=== PATIENT | female | born 1950 | race Hispanic/Latino ===

== ENCOUNTER 2017-04-30 09:43 | Inpatient (IN) | payer MEDICARE ==
[~2017-04-30] VITALS: Ht 149.9 cm; Wt 101.2 kg
[2017-04-30] MEDS ORDERED: IPRATROPIUM/ALBUTEROL SULFATE 3 ML SOLUTION IH ONE (10:29)
[2017-04-30 10:42] LABS: BASOPHILS % (AUTO) 0.5 % (0.0-5.0); EOSINOPHILS % (AUTO) 0.2 % (0.0-8.0); HEMATOCRIT 34.8 % (36-48); LYMPHOCYTES % (AUTO) 5.5 % (21.0-51.0); MEAN CORPUSCULAR HEMOGLOBIN 24.7 pg (27.0-33.0); MEAN CORPUSCULAR HGB CONC 31.8 g/dL (32.0-36.0); MEAN CORPUSCULAR VOLUME 77.6 fL (79-99); NEUTROPHILS % (AUTO) 88.8 % (40.0-77.0); PLATELET COUNT (AUTO) 242 K/uL (130-400); RED BLOOD CELL COUNT(AUTO) 4.48 MIL/uL (4.00-5.50); RED CELL DISTRIBUTION WIDTH 17.5 % (11.0-15.5); WHITE BLOOD COUNT (AUTO) 15.3 K/uL (4.8-10.8)
[2017-04-30 10:54] LABS: CREATININE 1.1 mg/dL (0.5-1.5); INR 1.15 (0.85-1.15); PARTIAL THROMBOPLASTIN TIME 33.1 SEC (26.3-35.5); POTASSIUM 3.6 mmol/L (3.5-5.1)
[2017-04-30] MEDS ORDERED: CEFTRIAXONE SODIUM 1 GM ONE ×2 (10:54→11:31)
[2017-04-30 11:02] LABS: ABG BASE EXCESS 1.2 mmol/L (-2.0-3.0); ABG HCO3 27.6 mmol/L (21.0-28.0); ABG PCO2 51 mmHg (32-45)
[2017-04-30 11:09] LABS: ALBUMIN 2.9 g/dL (3.5-5.0); CREATINE KINASE MB 1.4 ng/mL (0.5-3.6); TOTAL PROTEIN, SERUM 7.9 g/dL (6.0-8.3)
[2017-04-30 11:24] LABS: APPEARANCE,URINE TURBID (CLEAR); BILIRUBIN,URINE LARGE (NEGATIVE); COLOR,URINE ORANGE (YELLOW); GLUCOSE, URINE (UA) 100 mg/dL (NEGATIVE); KETONES,URINE 5 mg/dL (NEGATIVE); LEUKOCYTE ESTERASE ,URINE TRACE (NEGATIVE); NITRATE,URINE POSITIVE (NEGATIVE); OCCULT BLOOD,URINE NEGATIVE (NEGATIVE); PH,URINE 5.5 (5.0-8.0); PROTEIN,URINE 100 (NEGATIVE); UROBILINOGEN,URINE >=8.0 mg/dL (0.2-1.0)
[2017-04-30 11:35] LABS: BACTERIA,URINE Rare /HPF (None Seen); RBC,URINE 0-1 /HPF (0-1); SQUAMOUS EPITHELIAL CELL,UR Moderate /LPF (0-2)
[2017-04-30 11:36] LABS: MUCUS,URINE Few LPF (None Seen)
[2017-04-30] MEDS ORDERED: IOPAMIDOL-370 100 ML VIAL IV ONE (11:36)
[2017-04-30] MEDS ORDERED: SODIUM CHLORIDE 0.9% 1000ML 1,000 ML IV ONE (13:44)
[2017-04-30] MEDS ORDERED: ACETAMINOPHEN-CODEINE 300/30MG TAB PO PRN ×2 (13:45)
[2017-04-30] MEDS ORDERED: LEVOFLOXACIN 500 MG/D5W 100 ML 100 ML IV SCH (13:45)
[2017-04-30] MEDS ORDERED: MORPHINE SULFATE 2 MG/ML 1ML SYG IV PRN (13:45)
[2017-04-30] MEDS ORDERED: NITROGLYCERIN 0.4 MG SL TAB SL PRN (13:45)
[2017-04-30] MEDS ORDERED: POTASSIUM CHLORIDE 20MEQ/100ML 100 ML IV PRN (13:45)
[2017-04-30] MEDS ORDERED: GUAIFENESIN-DM 200/20 MG 10 ML PO PRN (13:45)
[2017-04-30] MEDS ORDERED: MORPHINE SULFATE 4 MG/1ML SYG IV PRN (13:45)
[2017-04-30] MEDS ORDERED: POTASSIUM CHLORIDE 10% ELIXIR 20 MEQ/15 ML UDCUP PO PRN (13:45)
[2017-04-30] MEDS ORDERED: HYDRALAZINE HCL 20 MG/ML VIAL IV PRN (13:45)
[2017-04-30] MEDS ORDERED: LIDOCAINE HCL-MPF 1% 2ML VIAL IVP PRN (13:45)
[2017-04-30] MEDS ORDERED: LACTULOSE 20 GM/30 ML UDCUP PO PRN (13:45)
[2017-04-30] MEDS ORDERED: ACETAMINOPHEN 325 MG TAB PO PRN ×2 (13:45)
[2017-04-30] MEDS ORDERED: MAG HYDROX/AL HYDROX/SIMETH ES 30 ML SUSP UDCUP PO PRN (13:45)
[2017-04-30] MEDS ORDERED: ONDANSETRON HCL 4 MG/2 ML VIAL IV PRN (13:45)
[2017-04-30] MEDS ORDERED: POTASSIUM CHLORIDE 20 MEQ ERTAB PO PRN (13:45)
[2017-04-30] MEDS ORDERED: METHYLPREDNISOLONE SOD SUCC 40MG/ML 1ML ONE (15:31)
[2017-04-30] MEDS ORDERED: BENZONATATE 100 MG CAPSULE PO ONE (15:37)
[2017-04-30] MEDS: IPRATROPIUM/ALBUTEROL SULFATE 3 ML SOLUTION IH SCH (18:25)
[2017-04-30] MEDS ORDERED: ATORVASTATIN CALCIUM 40 MG TABLET PO SCH (21:00)
[2017-04-30] MEDS: APIXABAN 5 MG TABLET PO SCH (21:00)
[2017-04-30] MEDS: METOPROLOL TARTRATE 25 MG TAB PO SCH (21:00)
[2017-04-30] MEDS ORDERED: APIXABAN 2.5 MG TABLET PO ONE (22:01)
[2017-04-30] MEDS ORDERED: METOPROLOL TARTRATE 25 MG TAB ONE (22:01)
[2017-05-01] VITALS (7 sets, daily range): BP systolic 110–135; BP diastolic 57–76
[2017-05-01] MEDS: IPRATROPIUM/ALBUTEROL SULFATE 3 ML SOLUTION IH SCH ×6 (00:42→23:40)
[2017-05-01] MEDS: LEVOFLOXACIN 500 MG/D5W 100 ML 100 ML IV SCH (02:00)
[2017-05-01] MEDS: FAMOTIDINE/PF 20 MG/2 ML VIAL IV SCH ×3 (02:05→21:19)
[2017-05-01] MEDS: BENZONATATE 100 MG CAPSULE PO SCH ×4 (02:05→21:18)
[2017-05-01] MEDS: METHYLPREDNISOLONE SOD SUCC 40MG/ML 1ML IVP SCH ×4 (02:09→21:23)
[2017-05-01] MEDS ORDERED: APIX5TAB PO (03:23)
[2017-05-01] MEDS ORDERED: ESOM40CA54 PO (03:23)
[2017-05-01] MEDS ORDERED: LISI10TA7 PO (03:23)
[2017-05-01] MEDS ORDERED: NAPR-1023 PO (03:23)
[2017-05-01] MEDS ORDERED: ATOR40TA71 PO (03:23)
[2017-05-01] MEDS ORDERED: METO-391 PO (03:23)
[2017-05-01] MEDS ORDERED: FURO40TA5 PO (03:23)
[2017-05-01] MEDS ORDERED: AMLO5TAB2 PO (03:23)
[2017-05-01] MEDS ORDERED: ASPI81TA40 PO (03:23)
[2017-05-01 04:01] LABS: HEMATOCRIT 33.9 % (36-48); MEAN CORPUSCULAR HGB CONC 30.6 g/dL (32.0-36.0); MEAN CORPUSCULAR VOLUME 78.3 fL (79-99); PLATELET COUNT (AUTO) 224 K/uL (130-400); RED BLOOD CELL COUNT(AUTO) 4.33 MIL/uL (4.00-5.50); RED CELL DISTRIBUTION WIDTH 17.5 % (11.0-15.5)
[2017-05-01 04:13] LABS: CREATININE 0.8 mg/dL (0.5-1.5); POTASSIUM 4.9 mmol/L (3.5-5.1)
[2017-05-01] MEDS ORDERED: ENOXAPARIN SODIUM 40 MG/0.4 ML SYRINGE SQ SCH (09:00)
[2017-05-01] MEDS: APIXABAN 5 MG TABLET PO SCH ×2 (10:40→21:19)
[2017-05-01] MEDS: METOPROLOL TARTRATE 25 MG TAB PO SCH ×2 (10:40→21:19)
[2017-05-01] MEDS: ASPIRIN 81MG TAB.CHEW PO SCH (10:40)
[2017-05-01] MEDS: LISINOPRIL 10 MG TABLET PO SCH (10:41)
[2017-05-01] MEDS: AMLODIPINE BESYLATE 5 MG TAB PO SCH (10:41)
[2017-05-02] MEDS: LEVOFLOXACIN 500 MG/D5W 100 ML 100 ML IV SCH (02:02)
[2017-05-02 03:35] VITALS: BP 137/83
[2017-05-02] MEDS: IPRATROPIUM/ALBUTEROL SULFATE 3 ML SOLUTION IH SCH (06:17)
[2017-05-02 06:19] LABS: CREATININE 1.1 mg/dL (0.5-1.5); POTASSIUM 4.4 mmol/L (3.5-5.1)
[2017-05-02] MEDS: METHYLPREDNISOLONE SOD SUCC 40MG/ML 1ML IVP SCH (06:30)
[2017-05-02 08:22] VITALS: BP 142/95
[2017-05-02] MEDS ORDERED: FUROSEMIDE 40 MG TABLET PO SCH (09:00)
[2017-05-02] MEDS: BENZONATATE 100 MG CAPSULE PO SCH (10:38)
[2017-05-02] MEDS: APIXABAN 5 MG TABLET PO SCH (10:39)
[2017-05-02] MEDS: AMLODIPINE BESYLATE 5 MG TAB PO SCH (10:39)
[2017-05-02] MEDS: METOPROLOL TARTRATE 25 MG TAB PO SCH (10:39)
[2017-05-02] MEDS: LISINOPRIL 10 MG TABLET PO SCH (10:40)
[2017-05-02] MEDS: ASPIRIN 81MG TAB.CHEW PO SCH (10:41)
[2017-05-02] MEDS: FAMOTIDINE/PF 20 MG/2 ML VIAL IV SCH (10:41)
== END 2017-05-02 11:25 | disposition home or self-care (01) | DRG 194 ==
LOC: EDH 09:43 → EDHIP 13:35 → 3BH 23:11
PROVIDERS: ADMIT Internal Medicine; ATTEND Internal Medicine
DX: J18.9 Pneumonia, unspecified organism (principal); Z68.42 Body mass index [BMI] 45.0-49.9, adult; E66.01 Morbid (severe) obesity due to excess calories; I48.91 Unspecified atrial fibrillation; E78.5 Hyperlipidemia, unspecified; I10 Essential (primary) hypertension; I25.10 Atherosclerotic heart disease of native coronary artery without angina pectoris; F17.210 Nicotine dependence, cigarettes, uncomplicated; Z79.01 Long term (current) use of anticoagulants; Z86.79 Personal history of other diseases of the circulatory system; Z95.5 Presence of coronary angioplasty implant and graft; Z28.21 Immunization not carried out because of patient refusal
CPT/HCPCS: 36415; 36600; 71045; 71275; 80048; 80053; 81001; 82550; 82553; 82803; 82948; 83605; 83880; 84484; 85025; 85027; 85610; 85730; 87040; 87088; 87804; 93005; 94640; 94664; J0696; J1650; J1956; J2920; J3490; J7030; Q9967

== ENCOUNTER 2017-06-30 16:41 | Emergency (ER) | payer MEDICARE ==
[~2017-06-30 16:41] MED LIST: AMLO5TAB2 PO; APIX5TAB PO; ASPI81TA40 PO; ATOR40TA71 PO; ESOM40CA54 PO; FURO40TA5 PO; LISI10TA7 PO; METO-391 PO; NAPR-1023 PO
[2017-06-30] MEDS ORDERED: MORPHINE SULFATE 4 MG/1ML SYG ONE (17:13)
[2017-06-30 17:19] LABS: BASOPHILS % (AUTO) 1.3 % (0.0-5.0); EOSINOPHILS % (AUTO) 1.5 % (0.0-8.0); HEMATOCRIT 34.9 % (36-48); LYMPHOCYTES % (AUTO) 8.3 % (21.0-51.0); MEAN CORPUSCULAR HEMOGLOBIN 24.1 pg (27.0-33.0); MEAN CORPUSCULAR HGB CONC 31.5 g/dL (32.0-36.0); MEAN CORPUSCULAR VOLUME 76.6 fL (79-99); MONOCYTES % (AUTO) 5.3 % (3.0-13.0); NEUTROPHILS % (AUTO) 83.6 % (40.0-77.0); PLATELET COUNT (AUTO) 199 K/uL (130-400); RED BLOOD CELL COUNT(AUTO) 4.55 MIL/uL (4.00-5.50); RED CELL DISTRIBUTION WIDTH 19.5 % (11.0-15.5); WHITE BLOOD COUNT (AUTO) 9.3 K/uL (4.8-10.8)
[2017-06-30 17:36] LABS: CREATININE 0.8 mg/dL (0.5-1.5); POTASSIUM 4.6 mmol/L (3.5-5.1)
[2017-06-30 17:49] LABS: ALBUMIN 3.2 g/dL (3.5-5.0); BILIRUBIN,TOTAL 0.7 mg/dL (0.2-1.0); CREATINE KINASE MB 0.8 ng/mL (0.5-3.6); TOTAL PROTEIN, SERUM 7.7 g/dL (6.0-8.3)
[2017-06-30] MEDS ORDERED: DICYCLOMINE HCL 10 MG/ML 2ML AMP IM ONE (18:19)
[2017-06-30] MEDS ORDERED: KETOROLAC TROMETHAMINE 15MG/ML ONE (18:20)
[2017-06-30] MEDS ORDERED: ACETAMINOPHEN 325 MG TAB ONE (19:28)
== END 2017-06-30 19:37 | disposition home or self-care (01) ==
LOC: EDH 16:41
DX: K80.20 Calculus of gallbladder without cholecystitis without obstruction (principal); I48.91 Unspecified atrial fibrillation; E78.5 Hyperlipidemia, unspecified; I10 Essential (primary) hypertension; Z72.0 Tobacco use; Z86.73 Personal history of transient ischemic attack (TIA), and cerebral infarction without residual deficits
CPT/HCPCS: 36415; 71045; 76705; 80053; 82150; 82550; 82553; 83690; 84484; 85025; 93005; 96372; 96374; 96375; 99285; J0500; J1885; J2270

== ENCOUNTER 2017-07-02 10:29 | Inpatient (IN) | payer MEDICARE ==
[~2017-07-02] VITALS: Ht 157.5 cm; Wt 104.3 kg
[2017-07-02 11:01] LABS: ABG BASE EXCESS 0.6 mmol/L (-2.0-3.0); ABG HCO3 25.9 mmol/L (21.0-28.0); ABG OXYGEN SATURATION 89.2 % (95.0-99.0); ABG PCO2 44 mmHg (32-45)
[2017-07-02 11:12] LABS: BASOPHILS % (AUTO) 1.4 % (0.0-5.0); EOSINOPHILS % (AUTO) 1.3 % (0.0-8.0); HEMATOCRIT 32.5 % (36-48); LYMPHOCYTES % (AUTO) 10.6 % (21.0-51.0); MEAN CORPUSCULAR HEMOGLOBIN 24.3 pg (27.0-33.0); MEAN CORPUSCULAR HGB CONC 31.6 g/dL (32.0-36.0); MONOCYTES % (AUTO) 5.3 % (3.0-13.0); NEUTROPHILS % (AUTO) 81.4 % (40.0-77.0); NUCLEATED RED BLOOD CELLS 0.1 % (0.0-0.19); PLATELET COUNT (AUTO) 195 K/uL (130-400); RED BLOOD CELL COUNT(AUTO) 4.22 MIL/uL (4.00-5.50); RED CELL DISTRIBUTION WIDTH 19.3 % (11.0-15.5)
[2017-07-02 11:27] LABS: B-TYPE NATRIURETIC PEPTIDE 292 pg/mL (0-100)
[2017-07-02] MEDS ORDERED: IOPAMIDOL-370 100 ML VIAL IV ONE (11:28)
[2017-07-02 11:34] LABS: INR 1.02 (0.85-1.15); PARTIAL THROMBOPLASTIN TIME 27.3 SEC (26.3-35.5); PROTHROMBIN TIME 10.7 SEC (9.6-11.6)
[2017-07-02 11:48] LABS: ALBUMIN 2.9 g/dL (3.5-5.0); BILIRUBIN,TOTAL 0.5 mg/dL (0.2-1.0); CREATINE KINASE MB 1.1 ng/mL (0.5-3.6); POTASSIUM 4.9 mmol/L (3.5-5.1); TOTAL PROTEIN, SERUM 7.3 g/dL (6.0-8.3)
[2017-07-02] MEDS ORDERED: FUROSEMIDE 10 MG/ML 4ML VIAL ONE (13:21)
[2017-07-02] MEDS ORDERED: ACETAMINOPHEN 325 MG TAB PO PRN ×2 (14:45)
[2017-07-02] MEDS ORDERED: LACTULOSE 20 GM/30 ML UDCUP PO PRN (14:45)
[2017-07-02] MEDS ORDERED: HYDRALAZINE HCL 20 MG/ML VIAL IV PRN (14:45)
[2017-07-02] MEDS ORDERED: MORPHINE SULFATE 2 MG/ML 1ML SYG IV PRN (14:45)
[2017-07-02] MEDS ORDERED: MORPHINE SULFATE 4 MG/1ML SYG IV PRN (14:45)
[2017-07-02] MEDS ORDERED: ACETAMINOPHEN-CODEINE 300/30MG TAB PO PRN ×2 (14:45)
[2017-07-02] MEDS ORDERED: NITROGLYCERIN 0.4 MG SL TAB SL PRN (14:45)
[2017-07-02] MEDS ORDERED: GUAIFENESIN-DM 200/20 MG 10 ML PO PRN (14:45)
[2017-07-02] MEDS ORDERED: MAG HYDROX/AL HYDROX/SIMETH ES 30 ML SUSP UDCUP PO PRN (14:45)
[2017-07-02] MEDS ORDERED: ONDANSETRON HCL MDV 20ML 2 MG/ML VIAL ONE (16:40)
[2017-07-02] MEDS ORDERED: MORPHINE SULFATE 2 MG/ML 1ML SYG ONE (16:41)
[2017-07-02] MEDS: IPRATROPIUM/ALBUTEROL SULFATE 3 ML SOLUTION IH SCH ×2 (18:31→23:29)
[2017-07-02 20:00] VITALS: BP 133/73
[2017-07-02] MEDS ORDERED: FAMOTIDINE 20MG TAB 20 MG TAB PO SCH (21:00)
[2017-07-02] MEDS ORDERED: ONDA4TAB9 PO (21:33)
[2017-07-02] MEDS ORDERED: DICY20TA11 PO (21:33)
[2017-07-02] MEDS ORDERED: TYL3 PO (21:33)
[2017-07-02] MEDS: LEVOFLOXACIN 500 MG/D5W 100 ML 100 ML IV SCH (22:52)
[2017-07-02] MEDS: METRONIDAZOLE 500MG/100ML BAG 100 ML IV SCH (23:51)
[2017-07-02] MEDS: ONDANSETRON HCL MDV 20ML 2 MG/ML VIAL IV PRN (23:51)
[2017-07-03] VITALS: BP 146/79
[2017-07-03 02:40] LABS: APPEARANCE,URINE Clear (CLEAR); BILIRUBIN,URINE Negative (NEGATIVE); COLOR,URINE Yellow (YELLOW); GLUCOSE, URINE (UA) Negative (NEGATIVE); KETONES,URINE Negative (NEGATIVE); LEUKOCYTE ESTERASE ,URINE Negative (NEGATIVE); NITRATE,URINE Negative (NEGATIVE); OCCULT BLOOD,URINE Negative (NEGATIVE); PROTEIN,URINE Negative (NEGATIVE)
[2017-07-03 03:16] LABS: BACTERIA,URINE Few /HPF (None Seen); RBC,URINE 0-1 /HPF (0-1)
[2017-07-03 04:00] VITALS: BP 152/86
[2017-07-03 06:06] LABS: HEMATOCRIT 31.8 % (36-48); MEAN CORPUSCULAR HEMOGLOBIN 24.9 pg (27.0-33.0); MEAN CORPUSCULAR HGB CONC 32.3 g/dL (32.0-36.0); NUCLEATED RED BLOOD CELLS 0.1 % (0.0-0.19); PLATELET COUNT (AUTO) 235 K/uL (130-400); RED BLOOD CELL COUNT(AUTO) 4.13 MIL/uL (4.00-5.50); RED CELL DISTRIBUTION WIDTH 18.7 % (11.0-15.5); WHITE BLOOD COUNT (AUTO) 9.2 K/uL (4.8-10.8)
[2017-07-03 06:36] LABS: CREATININE 0.9 mg/dL (0.5-1.5); POTASSIUM 4.3 mmol/L (3.5-5.1)
[2017-07-03] MEDS: IPRATROPIUM/ALBUTEROL SULFATE 3 ML SOLUTION IH SCH ×4 (06:49→23:14)
[2017-07-03 08:18] VITALS: BP 112/64
[2017-07-03] MEDS ORDERED: FUROSEMIDE 10 MG/ML 2ML VIAL IV SCH (09:00)
[2017-07-03] MEDS: FAMOTIDINE 20MG TAB 20 MG TAB PO SCH (09:56)
[2017-07-03] MEDS: APIXABAN 5 MG TABLET PO SCH ×2 (09:56→20:17)
[2017-07-03] MEDS: METRONIDAZOLE 500MG/100ML BAG 100 ML IV SCH (09:56)
[2017-07-03] MEDS: FUROSEMIDE 10 MG/ML 2ML VIAL IV SCH (09:56)
[2017-07-03 11:20] VITALS: BP 133/92
[2017-07-03] MEDS ORDERED: DICYCLOMINE HCL 20 MG TAB PO PRN (12:15)
[2017-07-03 17:06] VITALS: BP 126/70
[2017-07-03 20:00] VITALS: BP 141/94
[2017-07-04] VITALS (7 sets, daily range): BP systolic 123–136; BP diastolic 65–83
[2017-07-04 05:38] LABS: HEMATOCRIT 32.7 % (36-48); MEAN CORPUSCULAR HEMOGLOBIN 24.8 pg (27.0-33.0); MEAN CORPUSCULAR HGB CONC 31.9 g/dL (32.0-36.0); MEAN CORPUSCULAR VOLUME 77.7 fL (79-99); NUCLEATED RED BLOOD CELLS 0.1 % (0.0-0.19); PLATELET COUNT (AUTO) 228 K/uL (130-400); RED BLOOD CELL COUNT(AUTO) 4.21 MIL/uL (4.00-5.50); WHITE BLOOD COUNT (AUTO) 7.4 K/uL (4.8-10.8)
[2017-07-04 05:45] LABS: CREATININE 0.9 mg/dL (0.5-1.5); MAGNESIUM 2.1 mg/dL (1.80-2.40); POTASSIUM 4.8 mmol/L (3.5-5.1)
[2017-07-04 06:13] LABS: BAND NEUTROPHILS % (MANUAL) 9 % (0-2); BASOPHILS % (MANUAL) 1 % (0-2); EOSINOPHILS % (MANUAL) 1 % (1-6); LYMPHOCYTES % (MANUAL) 12 % (22-44); MONOCYTES % (MANUAL) 7 % (2-9); SEGMENTED NEUTROPHILS % 70 % (40-70)
[2017-07-04 06:14] LABS: MAN.DIFF COMMENT-IMPRESSION MANUAL DIFFERENTIAL; PLATELET MORPHOLOGY COMMENT ADEQUATE
[2017-07-04] MEDS: FUROSEMIDE 10 MG/ML 2ML VIAL IV SCH (06:27)
[2017-07-04] MEDS: IPRATROPIUM/ALBUTEROL SULFATE 3 ML SOLUTION IH SCH ×2 (06:55→10:43)
[2017-07-04] MEDS: APIXABAN 5 MG TABLET PO SCH ×2 (09:39→20:40)
[2017-07-04] MEDS: FAMOTIDINE 20MG TAB 20 MG TAB PO SCH (09:40)
[2017-07-04] MEDS: ATORVASTATIN CALCIUM 40 MG TABLET PO SCH (09:40)
[2017-07-04] MEDS: METOPROLOL TARTRATE 25 MG TAB PO SCH ×2 (09:40→20:40)
[2017-07-04] MEDS: ASPIRIN 81 MG EC TAB PO SCH (09:40)
[2017-07-04] MEDS: PANTOPRAZOLE SODIUM 40 MG TABLET.DR PO SCH (09:40)
[2017-07-04] MEDS: LISINOPRIL 10 MG TABLET PO SCH (09:41)
[2017-07-04] MEDS: AMLODIPINE BESYLATE 5 MG TAB PO SCH (09:41)
[2017-07-04] MEDS: LEVOFLOXACIN 500 MG/D5W 100 ML 100 ML IV SCH (09:41)
[2017-07-04] MEDS: LIDOCAINE 5% TOPICAL PATCH TP SCH (09:42)
[2017-07-04] MEDS: ONDANSETRON HCL MDV 20ML 2 MG/ML VIAL IV PRN (09:54)
[2017-07-04] MEDS ORDERED: PROMETHAZINE HCL 25 MG/ML 1ML AMPULE IM PRN (13:15)
[2017-07-04] MEDS ORDERED: IPRATROPIUM/ALBUTEROL SULFATE 3 ML SOLUTION IH PRN (13:15)
[2017-07-04] MEDS: MECLIZINE HCL 25 MG TABLET PO SCH ×2 (14:00→20:40)
[2017-07-05 04:00] VITALS: BP 124/80
[2017-07-05 05:45] LABS: CREATININE 0.9 mg/dL (0.5-1.5); POTASSIUM 4.4 mmol/L (3.5-5.1)
[2017-07-05 06:06] LABS: HEMATOCRIT 32.1 % (36-48); MEAN CORPUSCULAR HEMOGLOBIN 24.3 pg (27.0-33.0); MEAN CORPUSCULAR HGB CONC 31.4 g/dL (32.0-36.0); MEAN CORPUSCULAR VOLUME 77.1 fL (79-99); PLATELET COUNT (AUTO) 193 K/uL (130-400); RED BLOOD CELL COUNT(AUTO) 4.16 MIL/uL (4.00-5.50); RED CELL DISTRIBUTION WIDTH 19.2 % (11.0-15.5)
[2017-07-05 07:58] VITALS: BP 133/69
[2017-07-05] MEDS ORDERED: FUROSEMIDE 40 MG TABLET PO SCH (09:00)
[2017-07-05] MEDS: LIDOCAINE 5% TOPICAL PATCH TP SCH (09:07)
[2017-07-05] MEDS: ATORVASTATIN CALCIUM 40 MG TABLET PO SCH (09:08)
[2017-07-05] MEDS: METOPROLOL TARTRATE 25 MG TAB PO SCH (09:08)
[2017-07-05] MEDS: APIXABAN 5 MG TABLET PO SCH (09:08)
[2017-07-05] MEDS: FAMOTIDINE 20MG TAB 20 MG TAB PO SCH (09:08)
[2017-07-05] MEDS: MECLIZINE HCL 25 MG TABLET PO SCH (09:08)
[2017-07-05] MEDS: LISINOPRIL 10 MG TABLET PO SCH (09:08)
[2017-07-05] MEDS: ASPIRIN 81 MG EC TAB PO SCH (09:08)
[2017-07-05] MEDS: PANTOPRAZOLE SODIUM 40 MG TABLET.DR PO SCH (09:08)
[2017-07-05] MEDS: AMLODIPINE BESYLATE 5 MG TAB PO SCH (09:08)
[2017-07-05 11:34] VITALS: BP 135/83
[2017-07-05] MEDS ORDERED: FURO20TA6 PO (11:47)
[2017-07-05] MEDS ORDERED: MECL-111 PO (11:47)
[2017-07-05 16:35] VITALS: BP 132/78
== END 2017-07-05 17:54 | disposition home or self-care (01) | DRG 291 ==
LOC: EDH 10:29 → OBSVTOIN 14:12 → EDHIP 14:12 → 4BH 19:47
PROVIDERS: ADMIT Internal Medicine; ATTEND Internal Medicine
DX: I11.0 Hypertensive heart disease with heart failure (principal); J96.01 Acute respiratory failure with hypoxia; I50.33 Acute on chronic diastolic (congestive) heart failure; I48.2 Chronic atrial fibrillation; K76.0 Fatty (change of) liver, not elsewhere classified; E78.5 Hyperlipidemia, unspecified; F17.200 Nicotine dependence, unspecified, uncomplicated; I25.10 Atherosclerotic heart disease of native coronary artery without angina pectoris; K80.20 Calculus of gallbladder without cholecystitis without obstruction; M48.061 Spinal stenosis, lumbar region without neurogenic claudication; Z79.01 Long term (current) use of anticoagulants; Z95.5 Presence of coronary angioplasty implant and graft; Z82.49 Family history of ischemic heart disease and other diseases of the circulatory system
CPT/HCPCS: 36415; 36600; 70450; 71045; 71275; 72128; 72131; 76705; 80048; 80053; 81001; 82150; 82550; 82553; 82803; 83690; 83735; 83874; 83880; 84484; 85025; 85027; 85610; 85730; 93005; 93306; 94640; 94664; 94760; 99291; J1940; J1956; J3490; Q9967

== ENCOUNTER 2017-09-09 01:49 | Inpatient (IN) | payer MEDICARE ==
[~2017-09-09] VITALS: Ht 154.9 cm; Wt 102.7 kg
[~2017-09-09 01:49] MED LIST changes: +DICY20TA11 PO; +FURO20TA6 PO; +MECL-111 PO; +ONDA4TAB9 PO; +TYL3 PO
[2017-09-09 02:26] LABS: BASOPHILS % (AUTO) 1.2 % (0.0-5.0); HEMATOCRIT 32.9 % (36-48); LYMPHOCYTES % (AUTO) 8.1 % (21.0-51.0); MEAN CORPUSCULAR HEMOGLOBIN 23.7 pg (27.0-33.0); MEAN CORPUSCULAR HGB CONC 32.2 g/dL (32.0-36.0); MEAN CORPUSCULAR VOLUME 73.4 fL (79-99); MONOCYTES % (AUTO) 4.4 % (3.0-13.0); NEUTROPHILS % (AUTO) 85.3 % (40.0-77.0); PLATELET COUNT (AUTO) 156 K/uL (130-400); RED BLOOD CELL COUNT(AUTO) 4.48 MIL/uL (4.00-5.50); RED CELL DISTRIBUTION WIDTH 17.5 % (11.0-15.5); WHITE BLOOD COUNT (AUTO) 8.8 K/uL (4.8-10.8)
[2017-09-09 02:34] LABS: CREATININE 0.7 mg/dL (0.5-1.5)
[2017-09-09] MEDS ORDERED: NITROGLYCERIN 1GM/1 INCH PACKET TD ONE (02:38)
[2017-09-09] MEDS ORDERED: FUROSEMIDE 10 MG/ML 2ML VIAL ONE ×2 (02:38→03:43)
[2017-09-09 02:43] LABS: B-TYPE NATRIURETIC PEPTIDE 453 pg/mL (0-100)
[2017-09-09 02:47] LABS: ALBUMIN 3.4 g/dL (3.5-5.0); BILIRUBIN,TOTAL 0.8 mg/dL (0.2-1.0); CREATINE KINASE MB 1.6 ng/mL (0.5-3.6); TOTAL PROTEIN, SERUM 7.7 g/dL (6.0-8.3)
[2017-09-09 03:20] LABS: APPEARANCE,URINE Clear (CLEAR); BILIRUBIN,URINE Negative (NEGATIVE); COLOR,URINE Yellow (YELLOW); GLUCOSE, URINE (UA) Negative (NEGATIVE); KETONES,URINE Negative (NEGATIVE); LEUKOCYTE ESTERASE ,URINE Negative (NEGATIVE); NITRATE,URINE Negative (NEGATIVE); OCCULT BLOOD,URINE Negative (NEGATIVE); PH,URINE 7.5 (5.0-8.0); PROTEIN,URINE POS 2+ (NEGATIVE)
[2017-09-09 03:42] LABS: ABG BASE EXCESS 3.3 mmol/L (-2.0-3.0); ABG HCO3 29.7 mmol/L (21.0-28.0); ABG OXYGEN SATURATION 89.8 % (95.0-99.0); ABG PCO2 52 mmHg (32-45)
[2017-09-09] MEDS ORDERED: IPRATROPIUM/ALBUTEROL SULFATE 3 ML SOLUTION IH ONE (03:45)
[2017-09-09] MEDS ORDERED: IPRATROPIUM/ALBUTEROL SULFATE 3 ML SOLUTION IH PRN (06:30)
[2017-09-09] MEDS ORDERED: POTASSIUM CHLORIDE 10% ELIXIR 20 MEQ/15 ML UDCUP PO PRN (06:30)
[2017-09-09] MEDS ORDERED: LIDOCAINE HCL-MPF 1% 2ML VIAL IJ PRN (06:30)
[2017-09-09] MEDS ORDERED: NITROGLYCERIN 0.4 MG SL TAB SL PRN (06:30)
[2017-09-09] MEDS ORDERED: SODIUM CHLORIDE 0.9% 10 ML VIAL IVP SCH (06:30)
[2017-09-09] MEDS ORDERED: ACETAMINOPHEN 325 MG TAB PO PRN ×2 (06:30)
[2017-09-09] MEDS ORDERED: ONDANSETRON HCL 4 MG/2 ML VIAL IVP PRN (06:30)
[2017-09-09] MEDS ORDERED: GUAIFENESIN-DM 200/20 MG 10 ML PO PRN (06:30)
[2017-09-09] MEDS ORDERED: POTASSIUM CHLORIDE 20MEQ/100ML 100 ML IV PRN (06:30)
[2017-09-09] MEDS ORDERED: MAG HYDROX/AL HYDROX/SIMETH ES 30 ML SUSP UDCUP PO PRN (06:30)
[2017-09-09] MEDS ORDERED: POTASSIUM CHLORIDE 20 MEQ ERTAB PO PRN (06:30)
[2017-09-09] MEDS ORDERED: CLONIDINE HCL 0.1 MG TABLET PO PRN (06:30)
[2017-09-09] MEDS ORDERED: LACTULOSE 20 GM/30 ML UDCUP PO PRN (06:30)
[2017-09-09 06:43] VITALS: BP 134/73
[2017-09-09 08:10] VITALS: BP 147/95
[2017-09-09 08:19] LABS: HEMATOCRIT 32.3 % (36-48); MEAN CORPUSCULAR HEMOGLOBIN 23.5 pg (27.0-33.0); MEAN CORPUSCULAR HGB CONC 32.1 g/dL (32.0-36.0); MEAN CORPUSCULAR VOLUME 73.2 fL (79-99); NUCLEATED RED BLOOD CELLS 0.1 % (0.0-0.19); PLATELET COUNT (AUTO) 178 K/uL (130-400); RED BLOOD CELL COUNT(AUTO) 4.41 MIL/uL (4.00-5.50); RED CELL DISTRIBUTION WIDTH 18.1 % (11.0-15.5); WHITE BLOOD COUNT (AUTO) 8.2 K/uL (4.8-10.8)
[2017-09-09 08:46] LABS: B-TYPE NATRIURETIC PEPTIDE 565 pg/mL (0-100)
[2017-09-09 08:57] LABS: CREATININE 0.7 mg/dL (0.5-1.5); POTASSIUM 3.7 mmol/L (3.5-5.1)
[2017-09-09] MEDS ORDERED: FUROSEMIDE 10 MG/ML 4ML VIAL IVP SCH (09:00)
[2017-09-09] MEDS: FAMOTIDINE 20MG TAB 20 MG TAB PO SCH ×2 (09:25→20:41)
[2017-09-09] MEDS: IPRATROPIUM/ALBUTEROL SULFATE 3 ML SOLUTION IH PRN ×3 (11:02→23:48)
[2017-09-09 11:44] VITALS: BP 150/86
[2017-09-09] MEDS: PREDNISONE 10 MG TABLET PO SCH (11:49)
[2017-09-09] MEDS ORDERED: IOPAMIDOL-370 100 ML VIAL IV ONE (13:38)
[2017-09-09 16:00] VITALS: BP 141/81
[2017-09-09] MEDS: FUROSEMIDE 10 MG/ML 4ML VIAL IVP SCH (17:05)
[2017-09-09 19:03] VITALS: BP 147/79
[2017-09-09] MEDS: APIXABAN 5 MG TABLET PO SCH (20:41)
[2017-09-09] MEDS: METOPROLOL SUCCINATE 25 MG PO SCH (20:41)
[2017-09-09] MEDS ORDERED: METOPROLOL TARTRATE 25 MG TAB PO SCH (21:00)
[2017-09-09 23:10] VITALS: BP 123/85
[2017-09-10 03:31] VITALS: BP 140/76
[2017-09-10 03:46] LABS: HEMATOCRIT 33.7 % (36-48); MEAN CORPUSCULAR HGB CONC 31.6 g/dL (32.0-36.0); MEAN CORPUSCULAR VOLUME 72.8 fL (79-99); NUCLEATED RED BLOOD CELLS 0.1 % (0.0-0.19); PLATELET COUNT (AUTO) 175 K/uL (130-400); RED BLOOD CELL COUNT(AUTO) 4.63 MIL/uL (4.00-5.50); RED CELL DISTRIBUTION WIDTH 17.7 % (11.0-15.5); WHITE BLOOD COUNT (AUTO) 8.3 K/uL (4.8-10.8)
[2017-09-10 03:59] LABS: CREATININE 0.9 mg/dL (0.5-1.5); POTASSIUM 4.1 mmol/L (3.5-5.1)
[2017-09-10 04:06] LABS: B-TYPE NATRIURETIC PEPTIDE 560 pg/mL (0-100)
[2017-09-10] MEDS: FUROSEMIDE 10 MG/ML 4ML VIAL IVP SCH ×2 (05:14→16:40)
[2017-09-10] MEDS: IPRATROPIUM/ALBUTEROL SULFATE 3 ML SOLUTION IH PRN ×2 (06:43→11:54)
[2017-09-10] MEDS: PANTOPRAZOLE SODIUM 40 MG TABLET.DR PO SCH (06:53)
[2017-09-10 07:47] VITALS: BP 125/64
[2017-09-10] MEDS: PREDNISONE 10 MG TABLET PO SCH (09:32)
[2017-09-10] MEDS: APIXABAN 5 MG TABLET PO SCH ×2 (09:33→22:31)
[2017-09-10] MEDS: ASPIRIN 81 MG EC TAB PO SCH (09:33)
[2017-09-10] MEDS: LISINOPRIL 10 MG TABLET PO SCH (09:33)
[2017-09-10] MEDS: AMLODIPINE BESYLATE 5 MG TAB PO SCH (09:33)
[2017-09-10] MEDS: FAMOTIDINE 20MG TAB 20 MG TAB PO SCH ×2 (09:33→22:31)
[2017-09-10] MEDS: METOPROLOL SUCCINATE 25 MG PO SCH (09:34)
[2017-09-10 11:11] VITALS: BP 122/61
[2017-09-10 16:10] VITALS: BP 132/75
[2017-09-10 19:00] VITALS: BP_SYST 124; BP_SYST 138; BP_DIAS 67; BP_DIAS 73
[2017-09-10 23:00] VITALS: BP 128/72
[2017-09-11] MEDS: IPRATROPIUM/ALBUTEROL SULFATE 3 ML SOLUTION IH PRN (00:07)
[2017-09-11 03:00] VITALS: BP 138/95
[2017-09-11 04:22] LABS: CREATININE 0.8 mg/dL (0.5-1.5)
[2017-09-11] MEDS: FUROSEMIDE 10 MG/ML 4ML VIAL IVP SCH (05:31)
[2017-09-11 07:00] VITALS: BP 132/73
[2017-09-11] MEDS: PANTOPRAZOLE SODIUM 40 MG TABLET.DR PO SCH (08:44)
[2017-09-11] MEDS: APIXABAN 5 MG TABLET PO SCH (08:44)
[2017-09-11] MEDS: FAMOTIDINE 20MG TAB 20 MG TAB PO SCH (08:44)
[2017-09-11] MEDS: PREDNISONE 10 MG TABLET PO SCH (08:44)
[2017-09-11] MEDS: AMLODIPINE BESYLATE 5 MG TAB PO SCH (08:44)
[2017-09-11] MEDS: LISINOPRIL 10 MG TABLET PO SCH (08:44)
[2017-09-11] MEDS: ASPIRIN 81 MG EC TAB PO SCH (08:44)
[2017-09-11] MEDS: METOPROLOL SUCCINATE 25 MG PO SCH (08:46)
[2017-09-11] MEDS ORDERED: LEVO250T2 PO (09:23)
[2017-09-11] MEDS ORDERED: PRED20TA3 PO (09:23)
[2017-09-11 11:00] VITALS: BP 122/87
== END 2017-09-11 14:55 | disposition home or self-care (01) | DRG 291 ==
LOC: EDH 01:49 → EDHIP 03:25 → OBSVTOIN 03:25 → 2AH 06:18
PROVIDERS: ADMIT Family Medicine; ATTEND Family Medicine
PROC: 5A09357 Assistance with Respiratory Ventilation, Less than 24 Consecutive Hours, Continuous Positive Airway Pressure (ICD-10-PCS; principal; 2017-09-09)
DX: I11.0 Hypertensive heart disease with heart failure (principal); J96.21 Acute and chronic respiratory failure with hypoxia; I48.2 Chronic atrial fibrillation; J44.1 Chronic obstructive pulmonary disease with (acute) exacerbation; I50.43 Acute on chronic combined systolic (congestive) and diastolic (congestive) heart failure; E78.5 Hyperlipidemia, unspecified; F17.200 Nicotine dependence, unspecified, uncomplicated; I25.10 Atherosclerotic heart disease of native coronary artery without angina pectoris; Z79.01 Long term (current) use of anticoagulants; Z99.81 Dependence on supplemental oxygen; Z95.5 Presence of coronary angioplasty implant and graft; Z86.73 Personal history of transient ischemic attack (TIA), and cerebral infarction without residual deficits; Z82.49 Family history of ischemic heart disease and other diseases of the circulatory system
CPT/HCPCS: 36415; 36600; 71045; 71046; 71275; 80048; 80053; 81003; 82550; 82553; 82803; 83880; 84484; 85025; 85027; 93005; 94640; 94660; 94664; 99291; J1940; J7512; Q9967

== ENCOUNTER 2017-12-26 11:19 | Inpatient (IN) | payer MEDICARE, OTHER ==
[~2017-12-26] VITALS: Ht 154.9 cm; Wt 99.0 kg
[~2017-12-26 11:19] MED LIST changes: +ACET1TAB25 PO; -AMLO5TAB2 PO; +AMLO5TAB7 PO; +BACL10TA PO; -DICY20TA11 PO; -FURO20TA6 PO; +LEVO250T2 PO; +LORA10TA7 PO; -ONDA4TAB9 PO; +PRED20TA3 PO; -TYL3 PO; +UMEC1DIS IH
[2017-12-26 12:07] LABS: BASOPHILS % (AUTO) 1.3 % (0.0-5.0); EOSINOPHILS % (AUTO) 1.2 % (0.0-8.0); HEMATOCRIT 34.7 % (36-48); LYMPHOCYTES % (AUTO) 8.6 % (21.0-51.0); MEAN CORPUSCULAR HEMOGLOBIN 23.4 pg (27.0-33.0); MEAN CORPUSCULAR HGB CONC 31.3 g/dL (32.0-36.0); MEAN CORPUSCULAR VOLUME 74.9 fL (79-99); MONOCYTES % (AUTO) 5.9 % (3.0-13.0); NUCLEATED RED BLOOD CELLS 0.1 % (0.0-0.19); PLATELET COUNT (AUTO) 186 K/uL (130-400); RED BLOOD CELL COUNT(AUTO) 4.63 MIL/uL (4.00-5.50); RED CELL DISTRIBUTION WIDTH 21.2 % (11.0-15.5)
[2017-12-26 12:16] LABS: CREATININE 0.9 mg/dL (0.5-1.5); POTASSIUM 3.5 mmol/L (3.5-5.1)
[2017-12-26 12:20] LABS: ALBUMIN 3.2 g/dL (3.5-5.0); BILIRUBIN,TOTAL 1.4 mg/dL (0.2-1.0)
[2017-12-26] MEDS ORDERED: FUROSEMIDE 10 MG/ML 2ML VIAL ONE ×2 (12:20→13:38)
[2017-12-26] MEDS ORDERED: IPRATROPIUM/ALBUTEROL SULFATE 3 ML SOLUTION IH ONE (12:23)
[2017-12-26 12:38] LABS: B-TYPE NATRIURETIC PEPTIDE 1250 pg/mL (0-100)
[2017-12-26 15:30] VITALS: BP 155/89
[2017-12-26] MEDS ORDERED: AEC81 PO (16:19)
[2017-12-26] MEDS: LEVOFLOXACIN 500 MG TABLET PO SCH (18:11)
[2017-12-26] MEDS: POTASSIUM CHLORIDE 20 MEQ ERTAB PO SCH ×2 (18:12→21:02)
[2017-12-26] MEDS: IPRATROPIUM/ALBUTEROL SULFATE 3 ML SOLUTION IH SCH ×2 (18:52→23:28)
[2017-12-26 19:24] VITALS: BP_SYST 145; BP_DIAS 10; BP_DIAS 101
[2017-12-26] MEDS ORDERED: ACETAMINOPHEN 325 MG TAB PO PRN (20:00)
[2017-12-26] MEDS ORDERED: CLONIDINE HCL 0.1 MG TABLET PO PRN (20:00)
[2017-12-26] MEDS: APIXABAN 5 MG TABLET PO SCH (21:01)
[2017-12-26] MEDS: FUROSEMIDE 10 MG/ML 4ML VIAL IV SCH (21:02)
[2017-12-26 23:29] VITALS: BP 140/97
[2017-12-27 03:38] VITALS: BP 145/98
[2017-12-27 04:00] LABS: BASOPHILS % (AUTO) 1.2 % (0.0-5.0); EOSINOPHILS % (AUTO) 1.4 % (0.0-8.0); HEMATOCRIT 34.8 % (36-48); LYMPHOCYTES % (AUTO) 12.5 % (21.0-51.0); MEAN CORPUSCULAR HEMOGLOBIN 23.5 pg (27.0-33.0); MEAN CORPUSCULAR HGB CONC 31.5 g/dL (32.0-36.0); MEAN CORPUSCULAR VOLUME 74.6 fL (79-99); MONOCYTES % (AUTO) 6.6 % (3.0-13.0); NEUTROPHILS % (AUTO) 78.3 % (40.0-77.0); NUCLEATED RED BLOOD CELLS 0.4 % (0.0-0.19); PLATELET COUNT (AUTO) 179 K/uL (130-400); RED BLOOD CELL COUNT(AUTO) 4.66 MIL/uL (4.00-5.50); RED CELL DISTRIBUTION WIDTH 21.3 % (11.0-15.5); WHITE BLOOD COUNT (AUTO) 7.8 K/uL (4.8-10.8)
[2017-12-27 04:09] LABS: MAGNESIUM 1.7 mg/dL (1.80-2.40); POTASSIUM 4.2 mmol/L (3.5-5.1)
[2017-12-27 04:23] LABS: B-TYPE NATRIURETIC PEPTIDE 1030 pg/mL (0-100)
[2017-12-27] MEDS: IPRATROPIUM/ALBUTEROL SULFATE 3 ML SOLUTION IH SCH ×3 (06:40→18:20)
[2017-12-27 07:48] VITALS: BP 143/102
[2017-12-27] MEDS: LEVOFLOXACIN 500 MG TABLET PO SCH (08:52)
[2017-12-27] MEDS: ASPIRIN 81 MG EC TAB PO SCH (08:52)
[2017-12-27] MEDS: APIXABAN 5 MG TABLET PO SCH ×2 (08:52→21:12)
[2017-12-27] MEDS: LORATADINE 10 MG TABLET PO SCH (08:52)
[2017-12-27] MEDS: LISINOPRIL 10 MG TABLET PO SCH (08:52)
[2017-12-27] MEDS: PANTOPRAZOLE SODIUM 40 MG TABLET.DR PO SCH (08:52)
[2017-12-27] MEDS: FUROSEMIDE 10 MG/ML 4ML VIAL IV SCH ×2 (08:53→21:12)
[2017-12-27] MEDS: Metoprolol Succinate 50 MG PO SCH (08:57)
[2017-12-27] MEDS: UMECLIDINIUM BRM IH SCH (08:57)
[2017-12-27] MEDS: [UNRECOGNIZED DRUG - OTHER] IH SCH (08:57)
[2017-12-27 12:13] VITALS: BP 137/93
[2017-12-27 16:00] VITALS: BP 148/87
[2017-12-27 19:30] VITALS: BP 139/81
[2017-12-27 23:49] VITALS: BP 149/92
[2017-12-28] MEDS: IPRATROPIUM/ALBUTEROL SULFATE 3 ML SOLUTION IH SCH ×3 (01:51→11:19)
[2017-12-28 03:47] LABS: HEMATOCRIT 34.9 % (36-48); MEAN CORPUSCULAR HGB CONC 30.8 g/dL (32.0-36.0); MEAN CORPUSCULAR VOLUME 74.7 fL (79-99); PLATELET COUNT (AUTO) 172 K/uL (130-400); RED BLOOD CELL COUNT(AUTO) 4.68 MIL/uL (4.00-5.50); RED CELL DISTRIBUTION WIDTH 20.6 % (11.0-15.5); WHITE BLOOD COUNT (AUTO) 7.6 K/uL (4.8-10.8)
[2017-12-28 03:57] VITALS: BP 142/82
[2017-12-28 04:00] LABS: CREATININE 1.1 mg/dL (0.5-1.5); POTASSIUM 4.4 mmol/L (3.5-5.1)
[2017-12-28 07:58] VITALS: BP 134/86
[2017-12-28] MEDS ORDERED: LABETALOL 20 MG/4 ML DISP.SYRIN IV SCH (08:45)
[2017-12-28] MEDS ORDERED: MAGNESIUM 2GM PREMIX 50ML 50 ML IV SCH (08:45)
[2017-12-28] MEDS ORDERED: LABETALOL HCL 5 MG/ML 20ML VIAL IV SCH (08:55)
[2017-12-28] MEDS ORDERED: CIPROFLOXACIN HCL 500 MG TABLET PO SCH (09:00)
[2017-12-28] MEDS: Metoprolol Succinate 50 MG PO SCH (09:00)
[2017-12-28] MEDS ORDERED: LEVOFLOXACIN 500 MG TABLET PO SCH (09:00)
[2017-12-28] MEDS: FUROSEMIDE 10 MG/ML 4ML VIAL IV SCH (09:19)
[2017-12-28] MEDS: ASPIRIN 81 MG EC TAB PO SCH (09:20)
[2017-12-28] MEDS: PANTOPRAZOLE SODIUM 40 MG TABLET.DR PO SCH (09:20)
[2017-12-28] MEDS: APIXABAN 5 MG TABLET PO SCH (09:20)
[2017-12-28] MEDS: LISINOPRIL 10 MG TABLET PO SCH (09:20)
[2017-12-28] MEDS: LORATADINE 10 MG TABLET PO SCH (09:20)
[2017-12-28] MEDS: [UNRECOGNIZED DRUG - OTHER] IH SCH (09:22)
[2017-12-28] MEDS: UMECLIDINIUM BRM IH SCH (09:22)
[2017-12-28 11:32] VITALS: BP 128/91
[2017-12-29] MEDS ORDERED: LEVOFLOXACIN 500 MG TABLET PO SCH (09:00)
== END 2017-12-28 14:40 | disposition home or self-care (01) | DRG 291 ==
LOC: EDH 11:19 → EDHIP 14:10 → 2DH 15:34
PROVIDERS: ADMIT Internal Medicine; ATTEND Internal Medicine
DX: I11.0 Hypertensive heart disease with heart failure (principal); J96.20 Acute and chronic respiratory failure, unspecified whether with hypoxia or hypercapnia; J44.1 Chronic obstructive pulmonary disease with (acute) exacerbation; Z68.41 Body mass index [BMI] 40.0-44.9, adult; I50.23 Acute on chronic systolic (congestive) heart failure; I48.91 Unspecified atrial fibrillation; Z86.73 Personal history of transient ischemic attack (TIA), and cerebral infarction without residual deficits; E78.5 Hyperlipidemia, unspecified; I25.10 Atherosclerotic heart disease of native coronary artery without angina pectoris; E66.01 Morbid (severe) obesity due to excess calories; F17.210 Nicotine dependence, cigarettes, uncomplicated; Z82.49 Family history of ischemic heart disease and other diseases of the circulatory system; Z90.49 Acquired absence of other specified parts of digestive tract; Z71.6 Tobacco abuse counseling; Z28.21 Immunization not carried out because of patient refusal
CPT/HCPCS: 36415; 70450; 71045; 80048; 80053; 83735; 83880; 84484; 85025; 85027; 93005; 94640; 94664; J1940; J3475; J3490

== ENCOUNTER → 2018-06-13 | Outpatient (CLI) | payer OTHER, MEDICARE ==
[~2018-06-13] MED LIST changes: -ACET1TAB25 PO; +AEC81 PO; +ALBU0.63 IH; -AMLO5TAB7 PO; -ASPI81TA40 PO; -ATOR40TA71 PO; -BACL10TA PO; +FURO20TA4 PO; -FURO40TA5 PO; -LEVO250T2 PO; -MECL-111 PO; -NAPR-1023 PO; -PRED20TA3 PO
[2018-06-13 14:21] VITALS: BP 110/64
== END | disposition home or self-care (01) ==
LOC: WHH 08:20
PROVIDERS: ATTEND Family Medicine
DX: S61.401D Unspecified open wound of right hand, subsequent encounter (principal); R22.31 Localized swelling, mass and lump, right upper limb; J44.9 Chronic obstructive pulmonary disease, unspecified; I11.0 Hypertensive heart disease with heart failure; I50.9 Heart failure, unspecified; I48.91 Unspecified atrial fibrillation; E66.01 Morbid (severe) obesity due to excess calories; F32.9 Major depressive disorder, single episode, unspecified; F17.210 Nicotine dependence, cigarettes, uncomplicated; Z79.01 Long term (current) use of anticoagulants; X58.XXXD Exposure to other specified factors, subsequent encounter
CPT/HCPCS: G0463

== ENCOUNTER → 2018-06-24 | Outpatient (CLI) | payer OTHER, MEDICARE | END | disposition home or self-care (01) | LOC: RAH 10:27 | PROVIDERS: ATTEND Surgery | DX: R22.31 Localized swelling, mass and lump, right upper limb (principal) | CPT/HCPCS: 76882 ==

== ENCOUNTER 2018-11-11 02:55 | Observation (INO) | payer OTHER, MEDICARE ==
[~2018-11-11] VITALS: Ht 157.5 cm; Wt 89.6 kg
[2018-11-11 03:32] LABS: BASOPHILS % (AUTO) 1.2 % (0.0-5.0); HEMATOCRIT 37.5 % (36-48); LYMPHOCYTES % (AUTO) 11.7 % (21.0-51.0); MEAN CORPUSCULAR HEMOGLOBIN 28.6 pg (27.0-33.0); MEAN CORPUSCULAR VOLUME 86.6 fL (79-99); MONOCYTES % (AUTO) 4.1 % (3.0-13.0); PLATELET COUNT (AUTO) 140 K/uL (130-400); RED BLOOD CELL COUNT(AUTO) 4.33 MIL/uL (4.00-5.50); RED CELL DISTRIBUTION WIDTH 16.1 % (11.0-15.5); WHITE BLOOD COUNT (AUTO) 8.1 K/uL (4.8-10.8)
[2018-11-11] MEDS ORDERED: DILTIAZEM HCL 5 MG/ML 10 ML VIAL IV ONE (03:37)
[2018-11-11 03:39] LABS: POTASSIUM 3.4 mmol/L (3.5-5.1)
[2018-11-11 03:43] LABS: INR 1.05 (0.85-1.15); PARTIAL THROMBOPLASTIN TIME 27.1 SEC (26.3-35.5)
[2018-11-11 03:44] LABS: ALBUMIN 3.1 g/dL (3.5-5.0); BILIRUBIN,TOTAL 0.6 mg/dL (0.2-1.0); TOTAL PROTEIN, SERUM 6.3 g/dL (6.0-8.3)
[2018-11-11] MEDS ORDERED: DILTIAZEM HCL 125 MG/25 ML VIAL IV ONE (04:06)
[2018-11-11] MEDS ORDERED: SODIUM CHLORIDE 0.9% 100 ML IV ONE (04:06)
[2018-11-11] MEDS ORDERED: FUROSEMIDE 10 MG/ML 4ML VIAL ONE (04:46)
[2018-11-11] MEDS ORDERED: PRED10TA3 PO (05:51)
[2018-11-11] MEDS ORDERED: FURO40TA7 PO (05:51)
[2018-11-11] MEDS ORDERED: FUROSEMIDE 10 MG/ML 4ML VIAL IVP SCH (06:00)
[2018-11-11] MEDS ORDERED: DILTIAZEM 125MG+100 ML NS 125 ML IV SCH (06:00)
[2018-11-11] MEDS ORDERED: ALBUTEROL SULFATE 0.042% 1.25 MG/3 ML INH IH PRN (06:15)
[2018-11-11] MEDS: **HM** ANORO ELLIPTA 62.5-25MCG IH SCH (07:43)
[2018-11-11] MEDS: PANTOPRAZOLE SODIUM 40 MG TABLET.DR PO SCH (07:45)
[2018-11-11] MEDS: ASPIRIN 81 MG EC TAB PO SCH (07:45)
[2018-11-11] MEDS: METOPROLOL TARTRATE 25 MG TAB PO SCH ×2 (07:45→19:56)
[2018-11-11] MEDS: APIXABAN 5 MG TABLET PO SCH ×2 (07:45→19:56)
[2018-11-11 08:05] VITALS: BP 153/74
[2018-11-11] MEDS: LISINOPRIL 20 MG TABLET PO SCH (08:49)
[2018-11-11] MEDS ORDERED: LISINOPRIL 10 MG TABLET PO SCH (09:00)
[2018-11-11] MEDS: PREDNISONE 10 MG TABLET PO SCH (09:03)
[2018-11-11] MEDS ORDERED: ACETAMINOPHEN 325 MG TAB PO PRN (10:00)
[2018-11-11] MEDS: POTASSIUM CHLORIDE 20 MEQ ERTAB PO SCH ×2 (10:02→17:08)
[2018-11-11 12:00] VITALS: BP 137/84
[2018-11-11 16:29] VITALS: BP 145/75
[2018-11-11] MEDS: FUROSEMIDE 10 MG/ML 2ML VIAL IV SCH (17:08)
[2018-11-11 19:21] VITALS: BP 159/105
[2018-11-11 23:51] VITALS: BP 167/117
[2018-11-12] MEDS: IPRATROPIUM 0.5 MG/2.5 ML INH IH PRN ×3 (01:07→18:45)
[2018-11-12 03:56] VITALS: BP 144/75
[2018-11-12 04:00] LABS: HEMATOCRIT 38.5 % (36-48); MEAN CORPUSCULAR HEMOGLOBIN 28.7 pg (27.0-33.0); MEAN CORPUSCULAR HGB CONC 32.6 g/dL (32.0-36.0); MEAN CORPUSCULAR VOLUME 88.1 fL (79-99); PLATELET COUNT (AUTO) 160 K/uL (130-400); RED BLOOD CELL COUNT(AUTO) 4.38 MIL/uL (4.00-5.50); RED CELL DISTRIBUTION WIDTH 16.8 % (11.0-15.5); WHITE BLOOD COUNT (AUTO) 9.6 K/uL (4.8-10.8)
[2018-11-12 04:08] LABS: CREATININE 1.2 mg/dL (0.5-1.5); MAGNESIUM 1.7 mg/dL (1.80-2.40); POTASSIUM 4.7 mmol/L (3.5-5.1)
[2018-11-12] MEDS: FUROSEMIDE 10 MG/ML 2ML VIAL IV SCH (04:18)
[2018-11-12] MEDS: POTASSIUM CHLORIDE 20 MEQ ERTAB PO SCH ×2 (07:00→09:19)
[2018-11-12] MEDS: APIXABAN 5 MG TABLET PO SCH ×2 (07:56→20:43)
[2018-11-12] MEDS: ASPIRIN 81 MG EC TAB PO SCH (07:56)
[2018-11-12] MEDS: METOPROLOL TARTRATE 25 MG TAB PO SCH (07:57)
[2018-11-12] MEDS: **HM** ANORO ELLIPTA 62.5-25MCG IH SCH (07:57)
[2018-11-12] MEDS: PANTOPRAZOLE SODIUM 40 MG TABLET.DR PO SCH (07:57)
[2018-11-12] MEDS: PREDNISONE 10 MG TABLET PO SCH (07:57)
[2018-11-12] MEDS: LISINOPRIL 20 MG TABLET PO SCH (07:57)
[2018-11-12 07:59] VITALS: BP 158/78
[2018-11-12] MEDS: METOPROLOL TARTRATE 50 MG TAB PO SCH ×2 (08:51→20:43)
[2018-11-12] MEDS ORDERED: FUROSEMIDE 10 MG/ML 2ML VIAL IVP SCH (09:00)
[2018-11-12 11:40] VITALS: BP 132/66
[2018-11-12 16:00] VITALS: BP 155/79
[2018-11-12 19:39] VITALS: BP 124/78
[2018-11-12] MEDS: FUROSEMIDE 40 MG TABLET PO SCH (20:43)
[2018-11-12] MEDS ORDERED: NYSTATIN 15 GM POWDER TP STA (21:26)
[2018-11-13] VITALS (7 sets, daily range): BP systolic 142–166; BP diastolic 66–100
[2018-11-13 03:55] LABS: POTASSIUM 3.8 mmol/L (3.5-5.1)
[2018-11-13] MEDS: IPRATROPIUM 0.5 MG/2.5 ML INH IH PRN (06:16)
[2018-11-13] MEDS: FUROSEMIDE 40 MG TABLET PO SCH ×2 (08:42→17:21)
[2018-11-13] MEDS: PREDNISONE 10 MG TABLET PO SCH (08:42)
[2018-11-13] MEDS: PANTOPRAZOLE SODIUM 40 MG TABLET.DR PO SCH (08:42)
[2018-11-13] MEDS: APIXABAN 5 MG TABLET PO SCH (08:43)
[2018-11-13] MEDS: ASPIRIN 81 MG EC TAB PO SCH (08:43)
[2018-11-13] MEDS: LISINOPRIL 20 MG TABLET PO SCH (08:43)
[2018-11-13] MEDS ORDERED: METOPROLOL TARTRATE 50 MG TAB PO SCH (09:00)
[2018-11-13] MEDS: **HM** ANORO ELLIPTA 62.5-25MCG IH SCH (09:00)
[2018-11-13] MEDS: POTASSIUM CHLORIDE 20 MEQ ERTAB PO SCH (09:45)
== END 2018-11-13 19:45 | disposition home or self-care (01) ==
LOC: EDH 02:55 → EDHIP 04:47 → 2AH 05:35
PROVIDERS: ADMIT Internal Medicine; ATTEND Internal Medicine
DX: I48.2 Chronic atrial fibrillation (principal); E78.5 Hyperlipidemia, unspecified; I11.0 Hypertensive heart disease with heart failure; I50.43 Acute on chronic combined systolic (congestive) and diastolic (congestive) heart failure; J44.9 Chronic obstructive pulmonary disease, unspecified; J96.10 Chronic respiratory failure, unspecified whether with hypoxia or hypercapnia; I25.10 Atherosclerotic heart disease of native coronary artery without angina pectoris; I27.20 Pulmonary hypertension, unspecified; I34.0 Nonrheumatic mitral (valve) insufficiency; D68.59 Other primary thrombophilia; F17.200 Nicotine dependence, unspecified, uncomplicated; F41.9 Anxiety disorder, unspecified; Z86.73 Personal history of transient ischemic attack (TIA), and cerebral infarction without residual deficits; Z91.19 Patient's noncompliance with other medical treatment and regimen; Z99.81 Dependence on supplemental oxygen; Z79.01 Long term (current) use of anticoagulants
CPT/HCPCS: 36415 ×3; 71045; 80048 ×2; 80053; 82550; 83735; 83880; 84484; 85025; 85027; 85610; 85730; 93005 ×2; 93306; 94640 ×4; 94664; 96374; 96376; 99291; G0378 ×62; J1940 ×4; J3490 ×2; J7512 ×3

== ENCOUNTER → 2019-06-30 | Outpatient (CLI) | payer OTHER ==
[~2019-06-30] MED LIST changes: -FURO20TA4 PO; -LORA10TA7 PO; -METO-391 PO; +PRED10TA3 PO
== END | disposition home or self-care (01) ==
LOC: SHCH 11:57
PROVIDERS: ATTEND Internal Medicine Cardiovascular Disease
DX: I50.43 Acute on chronic combined systolic (congestive) and diastolic (congestive) heart failure (principal); I25.5 Ischemic cardiomyopathy; I42.0 Dilated cardiomyopathy
CPT/HCPCS: 93306

== ENCOUNTER 2019-09-29 02:05 | Inpatient (IN) | payer OTHER ==
[2019-09-29] VITALS (34 sets, daily range): BP systolic 128–172; BP diastolic 72–106
[2019-09-29] MEDS ORDERED: METHYLPREDNISOLONE SOD SUCC 125MG/2ML VIAL ONE (02:08)
[2019-09-29] MEDS ORDERED: LORAZEPAM 2 MG/ML 1 ML VIAL ONE (02:09)
[2019-09-29] MEDS ORDERED: METOPROLOL TARTRATE 1 MG/ML 5ML VIAL IV ONE ×2 (02:09→06:40)
[2019-09-29] MEDS ORDERED: IPRATROPIUM/ALBUTEROL SULFATE 3 ML SOLUTION IH ONE ×2 (02:10)
[2019-09-29 02:47] LABS: BASOPHILS % (AUTO) 1.2 % (0.0-5.0); EOSINOPHILS % (AUTO) 1.8 % (0.0-8.0); HEMATOCRIT 42.6 % (36-48); LYMPHOCYTES % (AUTO) 14.2 % (21.0-51.0); MEAN CORPUSCULAR HEMOGLOBIN 27.8 pg (27.0-33.0); MEAN CORPUSCULAR HGB CONC 30.8 g/dL (32.0-36.0); MEAN CORPUSCULAR VOLUME 90.4 fL (79-99); MONOCYTES % (AUTO) 4.1 % (3.0-13.0); NEUTROPHILS % (AUTO) 78.2 % (40.0-77.0); PLATELET COUNT (AUTO) 244 K/uL (130-400); RED BLOOD CELL COUNT(AUTO) 4.71 MIL/uL (4.00-5.50); RED CELL DISTRIBUTION WIDTH 14.2 % (11.0-15.5); WHITE BLOOD COUNT (AUTO) 9.7 K/uL (4.8-10.8)
[2019-09-29] MEDS ORDERED: CEFTRIAXONE SODIUM 2 GM VIAL ONE (02:50)
[2019-09-29] MEDS ORDERED: AZITHROMYCIN 500MG+NS 250ML 250 ML IV ONE (02:50)
[2019-09-29 02:53] LABS: ABG BASE EXCESS -1.3 mmol/L (-2.0-3.0); ABG HCO3 24.4 mmol/L (21.0-28.0); ABG OXYGEN SATURATION 97.3 % (95.0-99.0); ABG PCO2 44 mmHg (32-45)
[2019-09-29 03:03] LABS: INR 1.12 (0.85-1.15); PARTIAL THROMBOPLASTIN TIME 24.7 SEC (26.3-35.5)
[2019-09-29 03:06] LABS: ALBUMIN 3.3 g/dL (3.5-5.0); BILIRUBIN,TOTAL 0.6 mg/dL (0.2-1.0); CREATININE 1.4 mg/dL (0.5-1.5); TOTAL PROTEIN, SERUM 7.7 g/dL (6.0-8.3); TROPONIN I 0.13 ng/mL (0.00-0.06)
[2019-09-29 03:11] LABS: POTASSIUM 2.9 mmol/L (3.5-5.1)
[2019-09-29] MEDS ORDERED: ASPIRIN 81MG TAB.CHEW ONE (03:23)
[2019-09-29] MEDS ORDERED: POTASSIUM CHLORIDE 20MEQ/100ML 100 ML IV ONE (03:23)
[2019-09-29 03:44] LABS: APPEARANCE,URINE Clear (CLEAR); BILIRUBIN,URINE Negative (NEGATIVE); COLOR,URINE Yellow (YELLOW); GLUCOSE, URINE (UA) Negative (NEGATIVE); KETONES,URINE Negative (NEGATIVE); LEUKOCYTE ESTERASE ,URINE Negative (NEGATIVE); NITRATE,URINE Negative (NEGATIVE); OCCULT BLOOD,URINE Negative (NEGATIVE); PROTEIN,URINE POS 1+ mg/dL (NEGATIVE); UROBILINOGEN,URINE 0.2 mg/dL (0.2-1.0)
[2019-09-29] MEDS: METHYLPREDNISOLONE SOD SUCC 40MG/ML 1ML IVP SCH ×2 (03:45→11:55)
[2019-09-29] MEDS ORDERED: AZITHROMYCIN 500MG+NS 250ML 250 ML IV SCH (03:45)
[2019-09-29] MEDS ORDERED: ONDANSETRON HCL 4 MG/2 ML VIAL IV PRN (03:45)
[2019-09-29] MEDS ORDERED: FUROSEMIDE 10 MG/ML 2ML VIAL IV SCH ×2 (03:45→12:00)
[2019-09-29] MEDS ORDERED: LACTULOSE 20 GM/30 ML UDCUP PO PRN (03:45)
[2019-09-29] MEDS ORDERED: ACETAMINOPHEN 325 MG TAB PO PRN (03:45)
[2019-09-29] MEDS ORDERED: LIDOCAINE HCL-MPF 1% 2ML VIAL IV PRN ×2 (03:45→14:30)
[2019-09-29] MEDS ORDERED: POTASSIUM CHLORIDE 10MEQ/100ML 100 ML IV PRN (03:45)
[2019-09-29] MEDS ORDERED: CEFTRIAXONE SODIUM 1 GM IV SCH (03:45)
[2019-09-29] MEDS ORDERED: LIDOCAINE HCL-MPF 1% 2ML VIAL ONE (03:51)
[2019-09-29] MEDS ORDERED: ALBUTEROL INHALER 90MCG/INH IH PRN (04:00)
[2019-09-29 04:15] LABS: HEMOGLOBIN A1C 7.7 % (4.0-6.0)
[2019-09-29] MEDS ORDERED: HYDRALAZINE HCL 20 MG/ML VIAL IV PRN (04:15)
[2019-09-29] MEDS ORDERED: FUROSEMIDE 10 MG/ML 2ML VIAL ONE (04:18)
[2019-09-29] MEDS ORDERED: IOHEXOL 350 MG/ML 100ML INFUS..BTL IV ONE (04:27)
[2019-09-29 04:30] LABS: CHOLESTEROL 150 mg/dL (<200); HDL CHOLESTEROL 105 mg/dL (35-85); LDL DIRECT 97 mg/dL (0-99); TRIGLYCERIDES 145 mg/dL (30-200)
[2019-09-29] MEDS ORDERED: LIDOCAINE HCL 1% 20 ML VIAL ONE (05:26)
[2019-09-29] MEDS ORDERED: INSULIN HUMULIN R 100 UNIT/ML 3ML SQ SCH ×2 (06:00→16:30)
--- NOTE | 2019-09-29 08:10 | NUR ---
ICU ARRIVAL PATIENT ARRIVED TO ICU AT THIS TIME WITH ER NURSE AND RT. PATIENT TRANSFERRED WITH O2 2L, SATTING WELL, IN NO APPARENT DISTRESS. PATIENT PLACED ON BIPAP UPON ARRIVAL TO ICU ROOM. SATURATIONS 100%, HR 110-120s AFIB, BP STABLE. FROM ER REPORT BY PRIMITIVO OLIVER RN AT 0715, PATIENT RECEIVED ROCEPHIN 2GM AT 0300, AZITHROMYCIN AT 0320, ASA 325MG AT 0340, LASIX 20MG AT 0430, 20MEQ OF POTASSIUM AT 0400 AND SOLUMEDROL AT 0215. THOSE MEDS HAVE BEEN CLEARED FROM EMAR.
[2019-09-29] MEDS ORDERED: ENOXAPARIN SODIUM 40 MG/0.4 ML SYRINGE SQ SCH (09:00)
[2019-09-29] MEDS ORDERED: METOPROLOL TARTRATE 25 MG TAB PO SCH ×2 (09:00→10:00)
[2019-09-29] MEDS: ASPIRIN 81MG TAB.CHEW PO SCH (09:00)
[2019-09-29] MEDS ORDERED: FAMOTIDINE/PF 20 MG/2 ML VIAL IV ONE (09:12)
[2019-09-29] MEDS ORDERED: INSULIN HUMULIN R 100 UNIT/ML 3ML ONE (09:12)
[2019-09-29] MEDS ORDERED: ENOXAPARIN SODIUM 40 MG/0.4 ML SYRINGE SQ ONE (09:14)
[2019-09-29] MEDS ORDERED: METOPROLOL TARTRATE 25 MG TAB ONE ×2 (09:15→10:50)
[2019-09-29] MEDS: FAMOTIDINE/PF 20 MG/2 ML VIAL IV SCH ×2 (09:46→20:20)
--- NOTE | 2019-09-29 11:03 | NUR ---
REPORT REPORT GIVEN TO PATEL LUNDBERG AT THIS TIME. PATIENT WILL BE TRANSFERRED TO RM 418.
--- NOTE | 2019-09-29 11:20 | NUR ---
CONSULTATION DR. TRIANA AWARE OF CONSULTATION.
[2019-09-29] MEDS ORDERED: PRAV40TA3 PO (11:34)
[2019-09-29] MEDS ORDERED: URSO500T10 PO (11:34)
[2019-09-29] MEDS ORDERED: METO2.5T2 PO (11:34)
[2019-09-29] MEDS ORDERED: FURO80TA3 PO (11:34)
[2019-09-29] MEDS ORDERED: METO-391 PO (11:34)
[2019-09-29] MEDS ORDERED: VENL-61 PO (11:34)
[2019-09-29] MEDS ORDERED: ESOM40CA54 PO (11:34)
[2019-09-29] MEDS ORDERED: FLUT1BLS3 IH (11:34)
[2019-09-29] MEDS ORDERED: LISI10TA7 PO (11:34)
--- NOTE | 2019-09-29 11:45 | NUR ---
TRANSFER PATIENT TAKEN TO 418 AT THIS TIME ON 2L NC. PATIENT TIRED BUT IN NO APPARENT DISTRESS, AROUSABLE AND ORIENTED.
--- NOTE | 2019-09-29 11:45 | NUR ---
ARRIVAL TO ROOM 418 PT IS AAOX3 DENIES CP DENIES SOB DENIES NV NO COMPLAINTS WHILE AT REST, O2 VIA NC AT 2LPM. HOB UP AT 30 DEGREES, PATIENT WILL EAT LUNCH. CALL LIGHT WITHIN REACH.
[2019-09-29] MEDS: FUROSEMIDE 10 MG/ML 2ML VIAL IV SCH ×2 (11:56→12:01)
--- NOTE | 2019-09-29 14:07 | NUR ---
DC PLAN VISITED WITH PATIENT AND DAUGHTER. INDEPENDENT ABLE TO PERFORM ADL'S. PATIENT HAS PROVIDER 3 HRS A DAY. GOT A SHOWER CHAIR BUT IT WAS TO BIG DAUGHTER WILL TRY TO SEND BACK NOT SURE WERE THEY GOT IT FROM. PATIENT REQUESTING A WALKER. WILL LEAVE NOTE FOR MD IF OKAY TO SIGN SCRIPT FOR PT EVAL AND WALKER. THEY ALSO WANTED MORE HOURS EXPLAINED THAT DR. MACEDO WOULD HAVE TO INCREASE THAT. THEY MIGHT BE ABLE TO GO TO PERSON WHO EMPLOYEES HER CURRENT PROVIDER AND ASK HOW TO INCREASE HOURS. VERBALIZED UNDERSTANDING. Addendum: 09/29/19 at 1410 by JOSEPH LEONARDO RN CM Amended: Links added.
[2019-09-29] MEDS ORDERED: POTASSIUM CHLORIDE 10% ELIXIR 20 MEQ/15 ML UDCUP PO PRN (14:30)
[2019-09-29] MEDS ORDERED: POTASSIUM CHLORIDE 20MEQ/100ML 100 ML IV PRN (14:30)
[2019-09-29] MEDS ORDERED: PHARMACY COMMUNICATION MISC SCH ×3 (14:30→15:00)
--- NOTE | 2019-09-29 14:48 | NUR ---
DR TRIANA ROUNDED SAW PATIENT GAVE ORDERS. ALSO ORDERED PT TO BE TRANSFERED TO ICU, HOUSE SUP AWARE. REPORT GIVEN TO WILLIAM LUNDBERG.
--- NOTE | 2019-09-29 15:10 | NUR ---
TRANSFERRED PATIENT TO ROOM 216
[2019-09-29] MEDS: FUROSEMIDE 100 MG/NS 100ML IV SCH ×2 (15:33)
--- NOTE | 2019-09-29 15:40 | NUR ---
Dr Diego at bedside, new orders given.
[2019-09-29] MEDS: INSULIN GLARGINE 100 UNITS/ML 10 ML VIAL SQ SCH (20:04)
[2019-09-29] MEDS: METOPROLOL TARTRATE 50 MG TAB PO SCH (20:19)
[2019-09-29] MEDS: ATORVASTATIN CALCIUM 20 MG TABLET PO SCH (20:19)
[2019-09-29] MEDS: APIXABAN 5 MG TABLET PO SCH (20:20)
[2019-09-29] MEDS: ACETAMINOPHEN 325 MG TAB PO PRN (20:34)
[2019-09-29] MEDS: INSULIN HUMULIN R 100 UNIT/ML 3ML SQ SCH (23:39)
[2019-09-30] VITALS (24 sets, daily range): BP systolic 110–156; BP diastolic 66–97
[2019-09-30] MEDS ORDERED: FUROSEMIDE 10 MG/ML 10ML VIAL ONE (01:07)
[2019-09-30] MEDS ORDERED: SODIUM CHLORIDE 0.9% 100 ML IV ONE (01:07)
[2019-09-30] MEDS: FUROSEMIDE 100 MG/NS 100ML IV SCH ×2 (01:12)
[2019-09-30 03:55] LABS: BASOPHILS % (AUTO) 0.1 % (0.0-5.0); LYMPHOCYTES % (AUTO) 5.1 % (21.0-51.0); MEAN CORPUSCULAR HEMOGLOBIN 27.9 pg (27.0-33.0); MEAN CORPUSCULAR HGB CONC 31.5 g/dL (32.0-36.0); MEAN CORPUSCULAR VOLUME 88.4 fL (79-99); MONOCYTES % (AUTO) 2.8 % (3.0-13.0); NEUTROPHILS % (AUTO) 91.5 % (40.0-77.0); PLATELET COUNT (AUTO) 194 K/uL (130-400); RED BLOOD CELL COUNT(AUTO) 4.41 MIL/uL (4.00-5.50); RED CELL DISTRIBUTION WIDTH 14.2 % (11.0-15.5); WHITE BLOOD COUNT (AUTO) 12.3 K/uL (4.8-10.8)
[2019-09-30 04:09] LABS: CREATININE 1.6 mg/dL (0.5-1.5); POTASSIUM 3.7 mmol/L (3.5-5.1)
[2019-09-30 04:12] LABS: B-TYPE NATRIURETIC PEPTIDE 1470 pg/mL (0-100)
[2019-09-30] MEDS: INSULIN HUMULIN R 100 UNIT/ML 3ML SQ SCH ×4 (05:20→21:00)
[2019-09-30] MEDS: FAMOTIDINE/PF 20 MG/2 ML VIAL IV SCH ×2 (08:00→20:57)
[2019-09-30] MEDS: METOPROLOL TARTRATE 50 MG TAB PO SCH ×2 (08:00→20:57)
[2019-09-30] MEDS: APIXABAN 5 MG TABLET PO SCH ×2 (08:00→20:57)
[2019-09-30] MEDS: ASPIRIN 81MG TAB.CHEW PO SCH (08:01)
[2019-09-30] MEDS: POTASSIUM CHLORIDE 20 MEQ ERTAB PO PRN ×2 (09:13→11:01)
[2019-09-30] MEDS: ACETAMINOPHEN 325 MG TAB PO PRN ×2 (09:14→16:45)
--- NOTE | 2019-09-30 12:55 | NUR ---
Dr Odonnell at bedside, new orders given, including to downgrade to PCCU. Charge nurse DeuceRN notified
--- NOTE | 2019-09-30 13:20 | NUR ---
Discontinued saunders catheter intact, as ordered per
[2019-09-30] MEDS ORDERED: FUROSEMIDE 40 MG TABLET PO SCH (14:00)
--- NOTE | 2019-09-30 14:30 | NUR ---
States able to void at this time without any difficulties
--- NOTE | 2019-09-30 15:40 | NUR ---
Transferred to room 426 via wheelchair, pt's daughter at bedside. Bedside report given to TOÑO Medley
--- NOTE | 2019-09-30 15:50 | NUR ---
Called office of Dr Linda to notify about pt's transfer, no answer, but was able to leave voice mail message
--- NOTE | 2019-09-30 15:55 | NUR ---
ARRIVAL TO ROOM 426 AAOX3 DENIES CP DENIES SOB DENIES NV . FAMILY AT BEDSIDE.
[2019-09-30] MEDS: ATORVASTATIN CALCIUM 20 MG TABLET PO SCH (20:57)
[2019-09-30] MEDS: INSULIN GLARGINE 100 UNITS/ML 10 ML VIAL SQ SCH (21:16)
[2019-10-01 01:05] VITALS: BP 146/95
--- NOTE | 2019-10-01 04:12 | NUR ---
KONG RANGEL PAGED AWARE OF PT STATUS AWARE PT ALREADY HAS BIPAP ORDERS BUT SHE IS REFUSING TO WEAR IT NO NEW ORDERS , STATED PATIENT HAS TO KEEP IT ON
[2019-10-01 05:21] LABS: BASOPHILS % (AUTO) 0.4 % (0.0-5.0); EOSINOPHILS % (AUTO) 0.1 % (0.0-8.0); HEMATOCRIT 42.6 % (36-48); LYMPHOCYTES % (AUTO) 12.4 % (21.0-51.0); MEAN CORPUSCULAR HEMOGLOBIN 27.6 pg (27.0-33.0); MEAN CORPUSCULAR HGB CONC 30.8 g/dL (32.0-36.0); MEAN CORPUSCULAR VOLUME 89.9 fL (79-99); MONOCYTES % (AUTO) 5.7 % (3.0-13.0); NEUTROPHILS % (AUTO) 81.1 % (40.0-77.0); PLATELET COUNT (AUTO) 229 K/uL (130-400); RED BLOOD CELL COUNT(AUTO) 4.74 MIL/uL (4.00-5.50); RED CELL DISTRIBUTION WIDTH 14.3 % (11.0-15.5); WHITE BLOOD COUNT (AUTO) 13.6 K/uL (4.8-10.8)
[2019-10-01 05:36] LABS: B-TYPE NATRIURETIC PEPTIDE 1120 pg/mL (0-100); MAGNESIUM 2.2 mg/dL (1.80-2.40); POTASSIUM 3.7 mmol/L (3.5-5.1)
--- NOTE | 2019-10-01 07:20 | NUR ---
ASSESSMENT ENCOUNTERED PT ASLEEP BUT AROUSEABLE, A&OX3, IRATE, AND STATED SHE WANTED TO GO HOME. PT DOES NOT APPEAR TO BE IN ANY DISTRESS NOR ANY NEURO DEFICITS PRESENT. PT IS AMBULATORY, GAIT SLOW BUT STEADY WITH ASSIST AND WITH O2NC. PT IS ABLE TO TOLERATE FOODS AND FLUIDS WITH NO THROAT CLEARING OR COUGH. PT STATED THAT SHE WOULD LEAVE AGAINST MEDICAL ADVICE IF DR MACEDO DIDN'T DISCHARGE HER. ALSO INFORMED HER THAT IF THAT WERE THE CASE THAT FAMILY WOULD NEED TO BRING PORTABLE OXYGEN. SHE BEGAN CALLING HER DAUGHTERS ON CELL PHONE, CALL LIGHT WITHIN REACH, PT IN FULL VIEW OF RN STATION.
[2019-10-01 08:00] VITALS: BP 132/88
--- NOTE | 2019-10-01 08:10 | NUR ---
DR MACEDO AT BEDSIDE UPDATED GIVEN, ORDERS RECEIVED.
[2019-10-01] MEDS ORDERED: CEFTRIAXONE SODIUM 1 GM IVP SCH (08:15)
[2019-10-01] MEDS: METOPROLOL TARTRATE 50 MG TAB PO SCH (08:22)
[2019-10-01] MEDS ORDERED: POTASSIUM CHLORIDE 20 MEQ ERTAB PO SCH (09:00)
[2019-10-01] MEDS ORDERED: SPIRONOLACTONE 25 MG TAB PO SCH (09:00)
--- NOTE | 2019-10-01 09:00 | NUR ---
DISCHARGE INSTRUCTIONS GIVEN, PIV REMOVED AND INTACT, DISCHARGED HOME TO FAMILY VEHICLE VIA WHEELCHAIR.
== END 2019-10-01 09:35 | disposition home or self-care (01) | DRG 291 ==
LOC: EDH 02:05 → EDHIP 03:31 → 2CH 07:33 → 4CH 11:13 → 2CH 15:18 → 4DH 09-30 15:47
PROVIDERS: ADMIT Internal Medicine; ATTEND Internal Medicine
PROC: 5A09357 Assistance with Respiratory Ventilation, Less than 24 Consecutive Hours, Continuous Positive Airway Pressure (ICD-10-PCS; principal; 2019-09-29)
DX: I13.0 Hypertensive heart and chronic kidney disease with heart failure and stage 1 through stage 4 chronic kidney disease, or unspecified chronic kidney disease (principal); I50.43 Acute on chronic combined systolic (congestive) and diastolic (congestive) heart failure; J18.9 Pneumonia, unspecified organism; J96.21 Acute and chronic respiratory failure with hypoxia; J44.1 Chronic obstructive pulmonary disease with (acute) exacerbation; J44.0 Chronic obstructive pulmonary disease with (acute) lower respiratory infection; I48.19 Other persistent atrial fibrillation; N17.9 Acute kidney failure, unspecified; N18.4 Chronic kidney disease, stage 4 (severe); Z68.41 Body mass index [BMI] 40.0-44.9, adult; I42.0 Dilated cardiomyopathy; E78.5 Hyperlipidemia, unspecified; E87.6 Hypokalemia; E11.22 Type 2 diabetes mellitus with diabetic chronic kidney disease; E66.01 Morbid (severe) obesity due to excess calories; F17.210 Nicotine dependence, cigarettes, uncomplicated; I25.10 Atherosclerotic heart disease of native coronary artery without angina pectoris; Z20.828 Contact with and (suspected) exposure to other viral communicable diseases; Z86.73 Personal history of transient ischemic attack (TIA), and cerebral infarction without residual deficits; Z79.01 Long term (current) use of anticoagulants; Z79.899 Other long term (current) drug therapy; Z82.49 Family history of ischemic heart disease and other diseases of the circulatory system; Z83.6 Family history of other diseases of the respiratory system; Z83.3 Family history of diabetes mellitus
CPT/HCPCS: 36415; 36600; 71045; 71275; 80048; 80053; 80061; 81003; 82140; 82550; 82803; 82948; 83036; 83605; 83735; 83874; 83880; 84132; 84145; 84484; 85025; 85378; 85610; 85730; 87040; 87088; 87486; 87581; 87633; 87635; 87798; 87804; 93005; 93306; 93356; 94640; 94660; 97039; 99291; G0378; J0456; J0696; J1650; J1815; J1940; J2060; J2920; J2930; J3480; J3490; Q9967

== ENCOUNTER 2020-05-02 04:18 | Observation (INO) | payer OTHER ==
[~2020-05-02] VITALS: Ht 157.5 cm; Wt 97.1 kg
[~2020-05-02 04:18] MED LIST changes: +FLUT1BLS3 IH; +FURO80TA3 PO; +LISI10TA24 PO; -LISI10TA7 PO; +METO-391 PO; +METO2.5T2 PO; +PRAV40TA3 PO; +URSO500T10 PO; +VENL-191 PO
[2020-05-02] MEDS ORDERED: ALBUTEROL INHALER 90MCG/INH IH ONE (04:24)
[2020-05-02 04:38] LABS: ABG BASE EXCESS 4.1 mmol/L (-2.0-3.0); ABG HCO3 29.5 mmol/L (21.0-28.0); ABG OXYGEN SATURATION 88.3 % (95.0-99.0); ABG PCO2 47 mmHg (32-45)
[2020-05-02 04:51] LABS: BASOPHILS % (AUTO) 0.6 % (0.0-5.0); EOSINOPHILS % (AUTO) 1.5 % (0.0-8.0); HEMATOCRIT 35.6 % (36-48); LYMPHOCYTES % (AUTO) 5.7 % (21.0-51.0); MEAN CORPUSCULAR HEMOGLOBIN 28.5 pg (27.0-33.0); NEUTROPHILS % (AUTO) 87.5 % (40.0-77.0); NUCLEATED RED BLOOD CELLS 0.2 % (0.0-0.19); PLATELET COUNT (AUTO) 196 K/uL (130-400); RED CELL DISTRIBUTION WIDTH 15.2 % (11.0-15.5); WHITE BLOOD COUNT (AUTO) 13.2 K/uL (4.8-10.8)
[2020-05-02 04:52] LABS: APPEARANCE,URINE Clear (CLEAR); BILIRUBIN,URINE Negative (NEGATIVE); COLOR,URINE Yellow (YELLOW); GLUCOSE, URINE (UA) Negative (NEGATIVE); KETONES,URINE Negative (NEGATIVE); LEUKOCYTE ESTERASE ,URINE Negative (NEGATIVE); NITRATE,URINE Negative (NEGATIVE); OCCULT BLOOD,URINE Negative (NEGATIVE); PROTEIN,URINE POS 2+ mg/dL (NEGATIVE); UROBILINOGEN,URINE 0.2 mg/dL (0.2-1.0)
[2020-05-02 04:56] LABS: CREATININE 1.2 mg/dL (0.5-1.5); POTASSIUM 3.2 mmol/L (3.5-5.1)
[2020-05-02 05:02] LABS: INR 1.11 (0.85-1.15); PROTHROMBIN TIME 11.8 SEC (9.6-11.6)
[2020-05-02 05:03] LABS: PARTIAL THROMBOPLASTIN TIME 24.2 SEC (26.3-35.5)
[2020-05-02 05:06] LABS: ALBUMIN 3.2 g/dL (3.5-5.0); BILIRUBIN,TOTAL 0.6 mg/dL (0.2-1.0); TOTAL PROTEIN, SERUM 7.4 g/dL (6.0-8.3)
[2020-05-02 05:15] LABS: BACTERIA,URINE Few /HPF (None Seen); RBC,URINE 0-1 /HPF (0-1); WBC,URINE 0-1 /HPF (0-1)
[2020-05-02] MEDS ORDERED: AZITHROMYCIN 500MG+NS 250ML 250 ML IV ONE (06:39)
[2020-05-02] MEDS ORDERED: ASPIRIN 325 MG TABLET ONE (06:39)
[2020-05-02] MEDS ORDERED: FUROSEMIDE 20MG VIAL ONE (06:39)
[2020-05-02] MEDS ORDERED: ENOXAPARIN SODIUM 30 MG/0.3 ML SQ ONE (06:40)
[2020-05-02] MEDS ORDERED: CEFTRIAXONE 1G VIAL ONE (06:40)
[2020-05-02] MEDS: FUROSEMIDE 40MG VIAL IVP SCH ×3 (06:45→22:45)
[2020-05-02] MEDS: ENOXAPARIN SODIUM 30 MG/0.3 ML SQ SCH (09:00)
[2020-05-02] MEDS: CEFTRIAXONE 1G VIAL IVP SCH (09:00)
[2020-05-02] MEDS: IPRATROPIUM/ALBUTEROL SULFATE 3 ML SOLUTION IH SCH ×2 (12:00→18:00)
[2020-05-02] MEDS ORDERED: FUROSEMIDE 40MG VIAL ONE ×2 (13:47→22:53)
[2020-05-02] MEDS ORDERED: DEXTROSE 50%-WATER 50 ML DISP.SYRIN IV PRN (17:00)
[2020-05-02] MEDS ORDERED: GLUCAGON 1MG KIT 1 MG ML IM PRN (17:00)
[2020-05-02] MEDS: HUMALOG PO SS1 SQ SCH (21:00)
[2020-05-03] MEDS: IPRATROPIUM/ALBUTEROL SULFATE 3 ML SOLUTION IH SCH
[2020-05-03 01:15] VITALS: BP 137/59
[2020-05-03] MEDS ORDERED: LORA10TA7 PO (01:38)
[2020-05-03] MEDS ORDERED: ALLO300T2 PO (01:38)
[2020-05-03 04:00] VITALS: BP 121/65
[2020-05-03] MEDS: FUROSEMIDE 40MG VIAL IVP SCH (04:44)
[2020-05-03] MEDS: HUMALOG PO SS1 SQ SCH ×2 (05:13→11:30)
[2020-05-03 06:12] LABS: HEMATOCRIT 37.7 % (36-48); MEAN CORPUSCULAR HEMOGLOBIN 27.9 pg (27.0-33.0); MEAN CORPUSCULAR HGB CONC 31.6 g/dL (32.0-36.0); MEAN CORPUSCULAR VOLUME 88.3 fL (79-99); RED BLOOD CELL COUNT(AUTO) 4.27 MIL/uL (4.00-5.50); RED CELL DISTRIBUTION WIDTH 15.1 % (11.0-15.5); WHITE BLOOD COUNT (AUTO) 9.2 K/uL (4.8-10.8)
[2020-05-03 06:22] LABS: CREATININE 1.3 mg/dL (0.5-1.5); POTASSIUM 3.2 mmol/L (3.5-5.1)
[2020-05-03 08:02] VITALS: BP 156/76
[2020-05-03] MEDS: CEFTRIAXONE 1G VIAL IVP SCH ×2 (10:47→12:10)
[2020-05-03] MEDS: ENOXAPARIN SODIUM 30 MG/0.3 ML SQ SCH (10:47)
[2020-05-03 13:30] VITALS: BP 115/56
[2020-10-18] MEDS ORDERED: ALBUHFA IH (10:53)
[2020-10-18] MEDS ORDERED: APIX5TAB PO (10:53)
[2020-10-18] MEDS ORDERED: DULA3PEN SQ (10:53)
[2020-10-18] MEDS ORDERED: DIGO125T71 PO (10:53)
[2020-10-18] MEDS ORDERED: ACET1TAB25 PO (10:53)
[2020-10-18] MEDS ORDERED: METO-409 PO (10:53)
[2020-10-18] MEDS ORDERED: INSU200I4 SQ (10:53)
[2020-10-18] MEDS ORDERED: IPRA0.2S54 IH (10:53)
== END 2020-05-03 13:50 | disposition home or self-care (01) ==
LOC: EDH 04:18 → EDHIP 06:23 → 3BH 05-03 01:12
PROVIDERS: ADMIT Internal Medicine; ATTEND Internal Medicine
DX: J96.90 Respiratory failure, unspecified, unspecified whether with hypoxia or hypercapnia (principal); Z20.828 Contact with and (suspected) exposure to other viral communicable diseases; J44.0 Chronic obstructive pulmonary disease with (acute) lower respiratory infection; J18.9 Pneumonia, unspecified organism; I11.0 Hypertensive heart disease with heart failure; I50.9 Heart failure, unspecified; I48.91 Unspecified atrial fibrillation; E78.5 Hyperlipidemia, unspecified; E11.9 Type 2 diabetes mellitus without complications; Z86.73 Personal history of transient ischemic attack (TIA), and cerebral infarction without residual deficits; Z79.899 Other long term (current) drug therapy
CPT/HCPCS: 36415 ×2; 36600; 71045; 71046; 80048; 80053; 81001; 82550; 82803; 82948 ×2; 83605 ×2; 83880; 84484; 85025; 85027; 85378; 85610; 85730; 87040 ×2; 87088; 87426; 87804 ×2; 93005; 96372; 96374; 96375; 96376; 99291; G0378 ×32; J0456; J0696 ×2; J1650 ×2; J1940 ×4; U0003

== ENCOUNTER 2020-11-15 07:20 | Emergency (ER) | payer OTHER ==
[~2020-11-15] VITALS: Ht 152.4 cm; Wt 95.3 kg
[~2020-11-15 07:20] MED LIST changes: +ACET1TAB25 PO; -AEC81 PO; -ALBU0.63 IH; +ALBUHFA IH; +ALLO300T2 PO; +DIGO125T71 PO; +DULA3PEN SQ; +INSU200I4 SQ; +IPRA0.2S54 IH; -METO-391 PO; +METO-409 PO; -METO2.5T2 PO; -PRED10TA3 PO; -UMEC1DIS IH; -VENL-191 PO
[2020-11-15 07:24] VITALS: BP 175/93
== END 2020-11-15 09:51 | disposition left against medical advice (07) ==
LOC: EDH 07:20
DX: R06.02 Shortness of breath (principal); Z53.21 Procedure and treatment not carried out due to patient leaving prior to being seen by health care provider

== ENCOUNTER 2021-01-03 09:01 | Observation (INO) | payer OTHER ==
[~2021-01-03] VITALS: Ht 157.5 cm; Wt 89.6 kg
[2021-01-03 09:42] LABS: EOSINOPHILS % (AUTO) 2.2 % (0.0-8.0); HEMATOCRIT 40.7 % (36-48); LYMPHOCYTES % (AUTO) 6.5 % (21.0-51.0); MEAN CORPUSCULAR HEMOGLOBIN 27.9 pg (27.0-33.0); MEAN CORPUSCULAR HGB CONC 32.2 g/dL (32.0-36.0); MEAN CORPUSCULAR VOLUME 86.8 fL (79-99); MONOCYTES % (AUTO) 5.6 % (3.0-13.0); NEUTROPHILS % (AUTO) 84.1 % (40.0-77.0); PLATELET COUNT (AUTO) 162 K/uL (130-400); RED BLOOD CELL COUNT(AUTO) 4.69 MIL/uL (4.00-5.50); RED CELL DISTRIBUTION WIDTH 17.3 % (11.0-15.5); WHITE BLOOD COUNT (AUTO) 7.1 K/uL (4.8-10.8)
[2021-01-03] MEDS ORDERED: FAMOTIDINE 20MG VIAL IV ONE (10:00)
[2021-01-03] MEDS ORDERED: ONDANSETRON 4MG INJ IVP ONE (10:00)
[2021-01-03] MEDS ORDERED: 0.9%NACL 1000ML 1,000 ML IV ONE (10:00)
[2021-01-03] MEDS ORDERED: MORPHINE 4 MG SYG IVP ONE (10:00)
[2021-01-03 10:05] LABS: CARBON DIOXIDE 26 mmol/L (21-32); CHLORIDE 97 mmol/L (101-111); CREATININE 1.5 mg/dL (0.5-1.5); GLOMERULAR FILTR. RATE CALC 36 mL/min (>60); GLUCOSE,RANDOM 130 mg/dL (70-105); POTASSIUM 4.6 mmol/L (3.5-5.1); SODIUM SERUM 132 mmol/L (136-145); UREA NITROGEN, BLOOD 45 mg/dL (7-18)
[2021-01-03 10:09] LABS: ALANINE AMINOTRANSFERASE 30 U/L (12-78); ALBUMIN 2.4 g/dL (3.5-5.0); AMYLASE 18 U/L (25-115); ASPARTATE AMINOTRANSFERASE 83 U/L (10-37); BILIRUBIN,TOTAL 0.6 mg/dL (0.2-1.0); TOTAL PROTEIN, SERUM 6.7 g/dL (6.0-8.3)
[2021-01-03 10:13] LABS: LIPASE < 50 U/L (114-286)
[2021-01-03 11:25] LABS: APPEARANCE,URINE CLEAR (CLEAR); BILIRUBIN,URINE NEGATIVE (NEGATIVE); COLOR,URINE YELLOW (YELLOW); GLUCOSE, URINE (UA) NEGATIVE (NEGATIVE); KETONES,URINE NEGATIVE (NEGATIVE); LEUKOCYTE ESTERASE ,URINE NEGATIVE (NEGATIVE); NITRATE,URINE NEGATIVE (NEGATIVE); OCCULT BLOOD,URINE NEGATIVE (NEGATIVE); PROTEIN,URINE NEGATIVE (NEGATIVE); UROBILINOGEN,URINE 0.2 mg/dL (0.2-1.0)
[2021-01-03] MEDS ORDERED: FURO40TA5 PO (16:00)
[2021-01-03] MEDS ORDERED: METO-391 PO (16:00)
[2021-01-03] MEDS ORDERED: POTA-79 PO (16:00)
[2021-01-03 16:36] VITALS: BP 124/84
[2021-01-03 16:50] VITALS: BP 102/58
[2021-01-03] MEDS ORDERED: ACETAMINOPHEN WITH CODEINE 1 TAB TAB PO PRN (17:30)
[2021-01-03] MEDS ORDERED: ACETAMINOPHEN WITH CODEINE 1 TAB TAB ONE (17:39)
[2021-01-03] MEDS ORDERED: CEFTRIAXONE 1G VIAL IVP SCH (18:00)
[2021-01-03] MEDS ORDERED: 0.9%NACL 1000ML 1,000 ML IV SCH (18:00)
[2021-01-03 19:57] VITALS: BP 96/61
[2021-01-03] MEDS: KCL 20 MEQ ERTAB PO SCH (20:23)
[2021-01-03] MEDS: FUROSEMIDE 40 MG TABLET PO SCH (20:24)
[2021-01-03] MEDS ORDERED: ATORVASTATIN 10 MG TABLET PO SCH (21:00)
[2021-01-03 23:39] VITALS: BP 100/57
[2021-01-04 04:11] VITALS: BP 101/54
[2021-01-04 08:00] VITALS: BP 96/64
[2021-01-04 08:30] LABS: HEMATOCRIT 38.5 % (36-48); MEAN CORPUSCULAR HEMOGLOBIN 28.6 pg (27.0-33.0); MEAN CORPUSCULAR HGB CONC 32.2 g/dL (32.0-36.0); MEAN CORPUSCULAR VOLUME 88.9 fL (79-99); RED BLOOD CELL COUNT(AUTO) 4.33 MIL/uL (4.00-5.50); RED CELL DISTRIBUTION WIDTH 17.2 % (11.0-15.5); WHITE BLOOD COUNT (AUTO) 5.5 K/uL (4.8-10.8)
[2021-01-04] MEDS ORDERED: KETOROLAC 30MG VIAL (30MG/ML) IV SCH (08:30)
[2021-01-04 08:54] LABS: ALBUMIN 2.3 g/dL (3.5-5.0); BILIRUBIN,TOTAL 0.4 mg/dL (0.2-1.0); CREATININE 1.3 mg/dL (0.5-1.5); POTASSIUM 3.8 mmol/L (3.5-5.1)
[2021-01-04] MEDS ORDERED: PANTOPRAZOLE 40 MG TAB DR PO SCH (09:00)
[2021-01-04] MEDS ORDERED: URSODIOL 500 MG PO SCH (09:00)
[2021-01-04] MEDS ORDERED: METOPROLOL SUCCINATE 50 MG TAB.SR.24H PO SCH (09:00)
[2021-01-04] MEDS ORDERED: ALLOPURINOL 300 MG TABLET PO SCH (09:00)
[2021-01-04] MEDS ORDERED: **HM**(Fluticasone/Umeclidin/Vilanter (Trelegy Ellipta 100-62.5- IH SCH (09:00)
[2021-01-04] MEDS ORDERED: APIXABAN 5 MG TABLET PO SCH (09:00)
[2021-01-04] MEDS: KCL 20 MEQ ERTAB PO SCH (09:22)
[2021-01-04] MEDS: FUROSEMIDE 40 MG TABLET PO SCH (09:22)
[2021-01-04 12:00] VITALS: BP 101/67
[2021-01-04] MEDS ORDERED: DIGOXIN 125 MCG TABLET PO SCH (16:00)
== END 2021-01-04 16:00 | disposition home or self-care (01) ==
LOC: EDH 09:01 → EDHIP 14:15 → 3BH 16:56
PROVIDERS: ADMIT Internal Medicine; ATTEND Internal Medicine
DX: K52.9 Noninfective gastroenteritis and colitis, unspecified (principal); N17.9 Acute kidney failure, unspecified; I13.0 Hypertensive heart and chronic kidney disease with heart failure and stage 1 through stage 4 chronic kidney disease, or unspecified chronic kidney disease; I50.9 Heart failure, unspecified; N18.9 Chronic kidney disease, unspecified; E11.22 Type 2 diabetes mellitus with diabetic chronic kidney disease; I25.10 Atherosclerotic heart disease of native coronary artery without angina pectoris; I48.20 Chronic atrial fibrillation, unspecified; J44.9 Chronic obstructive pulmonary disease, unspecified; E86.0 Dehydration; E78.5 Hyperlipidemia, unspecified; M10.9 Gout, unspecified; E78.00 Pure hypercholesterolemia, unspecified; Z79.01 Long term (current) use of anticoagulants; Z79.4 Long term (current) use of insulin; Z98.891 History of uterine scar from previous surgery
CPT/HCPCS: 36415 ×2; 71045; 73502; 80053 ×2; 81003; 82150; 82948 ×3; 83630; 83690; 85025; 85027; 87324; 93005; 96361; 96374; 96375; 99285; G0378 ×26; J0696; J1885; J2270; J2405; J3490

== ENCOUNTER 2021-04-24 04:06 | Observation (INO) | payer OTHER ==
[~2021-04-24] VITALS: Ht 160 cm; Wt 88.9 kg
[~2021-04-24 04:06] MED LIST changes: -ALBUHFA IH; +FURO40TA5 PO; -FURO80TA3 PO; -IPRA0.2S54 IH; -LISI10TA24 PO; +METO-391 PO; -METO-409 PO; +POTA-79 PO
[2021-04-24 04:44] LABS: BASOPHILS % (AUTO) 0.3 % (0.0-5.0); EOSINOPHILS % (AUTO) 0.3 % (0.0-8.0); HEMATOCRIT 33.2 % (36-48); LYMPHOCYTES % (AUTO) 2.9 % (21.0-51.0); MEAN CORPUSCULAR HEMOGLOBIN 27.5 pg (27.0-33.0); MEAN CORPUSCULAR HGB CONC 31.9 g/dL (32.0-36.0); MONOCYTES % (AUTO) 4.3 % (3.0-13.0); NEUTROPHILS % (AUTO) 91.5 % (40.0-77.0); PLATELET COUNT (AUTO) 173 K/uL (130-400); RED BLOOD CELL COUNT(AUTO) 3.86 MIL/uL (4.00-5.50); RED CELL DISTRIBUTION WIDTH 16.5 % (11.0-15.5); WHITE BLOOD COUNT (AUTO) 13.4 K/uL (4.8-10.8)
[2021-04-24 04:54] LABS: POTASSIUM 3.6 mmol/L (3.5-5.1)
[2021-04-24 05:00] LABS: ALBUMIN 2.8 g/dL (3.5-5.0); BILIRUBIN,TOTAL 1.1 mg/dL (0.2-1.0)
[2021-04-24] MEDS ORDERED: METO-391 PO (06:38)
[2021-04-24] MEDS ORDERED: FURO40TA5 PO (06:38)
[2021-04-24] MEDS ORDERED: ACET1TAB25 PO (06:38)
[2021-04-24] MEDS ORDERED: PRAV40TA3 PO (06:38)
[2021-04-24] MEDS ORDERED: SACU1TAB7 PO (06:38)
[2021-04-24] MEDS ORDERED: ALLO300T2 PO (06:38)
[2021-04-24] MEDS ORDERED: ESOM40CA54 PO (06:38)
[2021-04-24] MEDS ORDERED: URSO500T10 PO (06:38)
[2021-04-24] MEDS ORDERED: APIX5TAB PO (06:38)
[2021-04-24] MEDS ORDERED: POTA-79 PO (06:38)
[2021-04-24] MEDS ORDERED: FLUT1BLS3 IH (06:38)
[2021-04-24] MEDS ORDERED: ACETAMINOPHEN 325 MG TAB PO PRN ×2 (07:30)
[2021-04-24] MEDS ORDERED: ONDANSETRON 4MG INJ IV PRN (07:30)
[2021-04-24] MEDS ORDERED: LACTULOSE 20 GM/30 ML UDCUP PO PRN (07:30)
[2021-04-24] MEDS ORDERED: AZITHROMYCIN 500MG+NS 250ML IVPB SCH (07:30)
[2021-04-24] MEDS ORDERED: NITROGLYCERIN 0.4 MG SL TAB SL PRN (07:30)
[2021-04-24] MEDS ORDERED: MAG/ALUM/SIMETH 30 ML UDCUP PO PRN (07:30)
[2021-04-24] MEDS ORDERED: GUAIFENESIN-DM 200/20 MG 10 ML PO PRN (07:30)
[2021-04-24] MEDS ORDERED: DEXAMETHASONE SOD PHOSPHATE 10MG/ML 1ML VIAL ONE (07:38)
[2021-04-24] MEDS ORDERED: 0.9%NACL 50ML 50 ML IV ONE (07:40)
[2021-04-24] MEDS: CEFTRIAXONE 1G VIAL IVP SCH ×2 (07:54→20:57)
[2021-04-24] MEDS: DEXAMETHASONE SOD PHOSPHATE 4 MG/ML 1ML VIAL IVP SCH (07:54)
[2021-04-24] MEDS ORDERED: AZITHROMYCIN 500MG+NS 250ML 250 ML IVPB SCH (08:00)
[2021-04-24] MEDS ORDERED: ENOXAPARIN SODIUM 40 MG/0.4 ML SYRINGE SQ SCH (09:00)
[2021-04-24 09:37] LABS: INR 1.19 (0.85-1.15); PROTHROMBIN TIME 12.8 SEC (9.6-11.6)
[2021-04-24 09:39] LABS: PARTIAL THROMBOPLASTIN TIME 38.7 SEC (26.3-35.5)
[2021-04-24] MEDS: FUROSEMIDE 40 MG TABLET PO SCH (20:58)
[2021-04-24] MEDS: SACUBITRIL/VALSARTAN 1 EACH TABLET PO SCH (20:58)
[2021-04-25 07:19] LABS: BASOPHILS % (AUTO) 0.1 % (0.0-5.0); HEMATOCRIT 34.6 % (36-48); LYMPHOCYTES % (AUTO) 3.6 % (21.0-51.0); MEAN CORPUSCULAR HEMOGLOBIN 27.5 pg (27.0-33.0); MEAN CORPUSCULAR HGB CONC 31.8 g/dL (32.0-36.0); MEAN CORPUSCULAR VOLUME 86.5 fL (79-99); NEUTROPHILS % (AUTO) 91.8 % (40.0-77.0); PLATELET COUNT (AUTO) 205 K/uL (130-400); RED CELL DISTRIBUTION WIDTH 15.9 % (11.0-15.5)
[2021-04-25 07:46] LABS: ALBUMIN 2.7 g/dL (3.5-5.0); BILIRUBIN,TOTAL 0.5 mg/dL (0.2-1.0); CREATININE 1.2 mg/dL (0.5-1.5); POTASSIUM 3.8 mmol/L (3.5-5.1); TOTAL PROTEIN, SERUM 7.1 g/dL (6.0-8.3)
[2021-04-25 07:56] LABS: CRP QUANTITATIVE 230.7 mg/L (0.00-9.0)
[2021-04-25] MEDS: CEFTRIAXONE 1G VIAL IVP SCH ×2 (08:04→19:30)
[2021-04-25] MEDS: DEXAMETHASONE SOD PHOSPHATE 4 MG/ML 1ML VIAL IVP SCH (08:04)
[2021-04-25] MEDS ORDERED: DIGOXIN 125 MCG TABLET PO SCH (09:00)
[2021-04-25] MEDS ORDERED: APIXABAN 5 MG TABLET PO SCH (09:00)
[2021-04-25] MEDS: METOPROLOL SUCCINATE 50 MG TAB.SR.24H PO SCH (09:46)
[2021-04-25] MEDS: FUROSEMIDE 40 MG TABLET PO SCH ×2 (09:46→22:42)
[2021-04-25] MEDS: SACUBITRIL/VALSARTAN 1 EACH TABLET PO SCH ×2 (09:48→22:41)
[2021-04-25] MEDS: ALLOPURINOL 300 MG TABLET PO SCH (09:48)
[2021-04-26 04:00] VITALS: BP_SYST 125; BP_SYST 130; BP_DIAS 76; BP_DIAS 85
[2021-04-26 07:27] LABS: BASOPHILS % (AUTO) 0.1 % (0.0-5.0); EOSINOPHILS % (AUTO) 0.1 % (0.0-8.0); HEMATOCRIT 35.1 % (36-48); LYMPHOCYTES % (AUTO) 4.7 % (21.0-51.0); MEAN CORPUSCULAR HEMOGLOBIN 27.5 pg (27.0-33.0); MEAN CORPUSCULAR HGB CONC 31.9 g/dL (32.0-36.0); MONOCYTES % (AUTO) 4.9 % (3.0-13.0); NEUTROPHILS % (AUTO) 89.6 % (40.0-77.0); PLATELET COUNT (AUTO) 213 K/uL (130-400); RED BLOOD CELL COUNT(AUTO) 4.08 MIL/uL (4.00-5.50); RED CELL DISTRIBUTION WIDTH 16.1 % (11.0-15.5); WHITE BLOOD COUNT (AUTO) 10.3 K/uL (4.8-10.8)
[2021-04-26] MEDS: DEXAMETHASONE SOD PHOSPHATE 4 MG/ML 1ML VIAL IVP SCH (07:30)
[2021-04-26 07:49] LABS: ALANINE AMINOTRANSFERASE 16 U/L (12-78); ALBUMIN 2.7 g/dL (3.5-5.0); ASPARTATE AMINOTRANSFERASE 16 U/L (10-37); BILIRUBIN,TOTAL 0.4 mg/dL (0.2-1.0); CARBON DIOXIDE 33 mmol/L (21-32); CHLORIDE 100 mmol/L (101-111); CREATININE 0.9 mg/dL (0.5-1.5); DIGOXIN < 0.20 ng/mL (0.50-2.00); GLOMERULAR FILTR. RATE CALC 66 mL/min (>60); GLUCOSE,RANDOM 193 mg/dL (70-105); LACTATE DEHYDROGENASE 211 U/L (81-234); POTASSIUM 3.5 mmol/L (3.5-5.1); SODIUM SERUM 138 mmol/L (136-145); TOTAL PROTEIN, SERUM 6.8 g/dL (6.0-8.3); UREA NITROGEN, BLOOD 25 mg/dL (7-18)
[2021-04-26] MEDS: ALLOPURINOL 300 MG TABLET PO SCH (09:00)
[2021-04-26] MEDS ORDERED: KCL 20 MEQ ERTAB PO SCH (09:00)
[2021-04-26] MEDS ORDERED: **HM**TRELEGY ELLIPTA IH SCH (09:00)
[2021-04-26] MEDS ORDERED: APIXABAN 5 MG TABLET PO SCH ×2 (09:00)
[2021-04-26] MEDS ORDERED: FUROSEMIDE 80 MG TABLET PO SCH (09:00)
[2021-04-26] MEDS ORDERED: PANTOPRAZOLE 40 MG TAB DR PO SCH (09:00)
[2021-04-26] MEDS ORDERED: AZITHROMYCIN 500MG+NS 250ML IVPB SCH (09:00)
[2021-04-26] MEDS ORDERED: TRULICITY 3 MG SQ SCH (09:00)
[2021-04-26] MEDS ORDERED: ALLOPURINOL 300 MG TABLET PO SCH (09:00)
[2021-04-26] MEDS ORDERED: ACETAMINOPHEN WITH CODEINE 1 TAB TAB PO PRN (09:00)
[2021-04-26] MEDS ORDERED: URSODIOL 500 MG PO SCH (09:00)
[2021-04-26] MEDS: METOPROLOL SUCCINATE 50 MG TAB.SR.24H PO SCH (09:00)
[2021-04-26] MEDS ORDERED: ATORVASTATIN 10 MG TABLET PO SCH (09:00)
[2021-04-26] MEDS: SACUBITRIL/VALSARTAN 1 EACH TABLET PO SCH (09:01)
[2021-04-26] MEDS ORDERED: DEXA6TAB7 PO (09:17)
[2021-04-26] MEDS ORDERED: APIX5TAB PO (09:17)
[2021-04-26] MEDS ORDERED: IPRA3AMP24 IH (09:17)
[2021-04-26] MEDS ORDERED: NICO1PAT40 TD (09:17)
[2021-04-26] MEDS ORDERED: LEVO500T90 PO (09:17)
[2021-04-26] MEDS ORDERED: DIGO125T71 PO (09:18)
[2021-04-26] MEDS ORDERED: LEVOFLOXACIN 500 MG TABLET PO SCH ×2 (09:30→09:45)
[2021-04-26] MEDS ORDERED: ALBUTEROL INHALER 90MCG/INH IH PRN (09:30)
[2021-04-26] MEDS ORDERED: DIGOXIN 125 MCG TABLET PO SCH ×2 (09:30→09:45)
[2021-04-26] MEDS ORDERED: NICOTINE 14 MG/ 24 HR PATCH TD SCH (09:30)
[2021-04-26] MEDS: NICOTINE 14 MG/ 24 HR PATCH TD SCH ×2 (09:45→10:45)
[2021-04-26 12:34] VITALS: BP 131/65
[2021-04-27] MEDS ORDERED: TRESIBA SQ SCH (08:00)
== END 2021-04-26 17:33 | disposition home or self-care (01) ==
LOC: EDH 04:06 → EDHIP 07:01
PROVIDERS: ADMIT Internal Medicine Critical Care Medicine; ATTEND Internal Medicine Critical Care Medicine
DX: U07.1 COVID-19 (principal); J96.21 Acute and chronic respiratory failure with hypoxia; J12.82 Pneumonia due to coronavirus disease 2019; E11.9 Type 2 diabetes mellitus without complications; I11.0 Hypertensive heart disease with heart failure; I50.30 Unspecified diastolic (congestive) heart failure; J44.1 Chronic obstructive pulmonary disease with (acute) exacerbation; T46.0X5A Adverse effect of cardiac-stimulant glycosides and drugs of similar action, initial encounter; I48.20 Chronic atrial fibrillation, unspecified; I25.10 Atherosclerotic heart disease of native coronary artery without angina pectoris; I27.20 Pulmonary hypertension, unspecified; E78.5 Hyperlipidemia, unspecified; K74.3 Primary biliary cirrhosis; E78.00 Pure hypercholesterolemia, unspecified; R11.10 Vomiting, unspecified; R42 Dizziness and giddiness; E66.01 Morbid (severe) obesity due to excess calories; Z91.19 Patient's noncompliance with other medical treatment and regimen; Z79.4 Long term (current) use of insulin; Z72.0 Tobacco use; Z78.9 Other specified health status; Z79.01 Long term (current) use of anticoagulants; Z79.899 Other long term (current) drug therapy; Z99.81 Dependence on supplemental oxygen; Z68.34 Body mass index [BMI] 34.0-34.9, adult
CPT/HCPCS: 36415 ×3; 71045; 80053 ×3; 80162 ×2; 82728 ×2; 82948; 83615 ×3; 84145; 84484; 85025 ×3; 85378 ×3; 85610; 85730; 86140 ×2; 86850; 86900; 86901; 87040 ×2; 87635; 93005; 96361; 96365; 96372; 96375; 96376 ×2; 99285; C9803; G0378 ×59; J0456; J0696 ×3; J1100 ×3; J1650

== ENCOUNTER → 2021-05-19 | Outpatient (CLI) | payer OTHER ==
[~2021-05-19] MED LIST changes: +DEXA6TAB7 PO; +IPRA3AMP24 IH; +LEVO500T90 PO; +NICO1PAT40 TD; +SACU1TAB7 PO
== END | disposition home or self-care (01) ==
LOC: RAH 08:35
PROVIDERS: ATTEND Internal Medicine Gastroenterology
DX: K74.3 Primary biliary cirrhosis (principal); K82.4 Cholesterolosis of gallbladder; R77.2 Abnormality of alphafetoprotein
CPT/HCPCS: 76700; 93975

== ENCOUNTER 2021-05-23 13:32 | Emergency (ER) | payer OTHER ==
[2021-05-23] MEDS ORDERED: [UNRECOGNIZED DRUG - CODE] TP (15:56)
[2021-05-23] MEDS ORDERED: ACET-2247 PO (15:56)
[2021-05-23] MEDS ORDERED: FLUC150T PO (15:56)
[2021-05-23] MEDS ORDERED: CEPH500B PO (15:56)
[2021-05-23] MEDS ORDERED: CEPHALEXIN 500 MG CAPSULE PO ONE (16:00)
[2021-05-23] MEDS ORDERED: FLUCONAZOLE 100 MG TAB PO ONE (16:00)
[2021-05-23] MEDS ORDERED: HYDROCODONE/ACETAMINOPHEN 5/325 MG TAB PO ONE (16:00)
[2021-05-23 16:37] VITALS: BP 129/87
== END 2021-05-23 17:11 | disposition home or self-care (01) ==
LOC: EDH 13:32
DX: L40.0 Psoriasis vulgaris (principal); B35.6 Tinea cruris; I11.0 Hypertensive heart disease with heart failure; I50.9 Heart failure, unspecified; I25.10 Atherosclerotic heart disease of native coronary artery without angina pectoris; E11.9 Type 2 diabetes mellitus without complications; E78.00 Pure hypercholesterolemia, unspecified; B95.61 Methicillin susceptible Staphylococcus aureus infection as the cause of diseases classified elsewhere; Z79.4 Long term (current) use of insulin; Z79.52 Long term (current) use of systemic steroids; Z79.899 Other long term (current) drug therapy; Z79.01 Long term (current) use of anticoagulants

== ENCOUNTER 2021-06-19 11:15 | Observation (INO) | payer OTHER, MEDICARE ==
[~2021-06-19] VITALS: Ht 167.6 cm; Wt 81.4 kg
[~2021-06-19 11:15] MED LIST changes: +ACET-2247 PO; -ACET1TAB25 PO; +CEPH500B PO; -DEXA6TAB7 PO; -DIGO125T71 PO; -IPRA3AMP24 IH; -LEVO500T90 PO; -NICO1PAT40 TD; +[UNRECOGNIZED DRUG - CODE] TP
[2021-06-19 12:00] LABS: BASOPHILS % (AUTO) 0.9 % (0.0-5.0); EOSINOPHILS % (AUTO) 0.7 % (0.0-8.0); LYMPHOCYTES % (AUTO) 7.1 % (21.0-51.0); MEAN CORPUSCULAR HEMOGLOBIN 28.1 pg (27.0-33.0); MEAN CORPUSCULAR VOLUME 87.9 fL (79-99); MONOCYTES % (AUTO) 5.6 % (3.0-13.0); NEUTROPHILS % (AUTO) 85.3 % (40.0-77.0); PLATELET COUNT (AUTO) 142 K/uL (130-400); RED BLOOD CELL COUNT(AUTO) 3.98 MIL/uL (4.00-5.50); RED CELL DISTRIBUTION WIDTH 17.2 % (11.0-15.5); WHITE BLOOD COUNT (AUTO) 10.5 K/uL (4.8-10.8)
[2021-06-19 12:08] LABS: CREATININE 0.8 mg/dL (0.5-1.5); POTASSIUM 3.7 mmol/L (3.5-5.1)
[2021-06-19 12:12] LABS: ALBUMIN 2.9 g/dL (3.5-5.0); BILIRUBIN,TOTAL 1.2 mg/dL (0.2-1.0); TOTAL PROTEIN, SERUM 6.2 g/dL (6.0-8.3)
[2021-06-19 12:16] LABS: B-TYPE NATRIURETIC PEPTIDE 904 pg/mL (0-100)
[2021-06-19] MEDS ORDERED: ONDANSETRON 4MG INJ IVP ONE (12:30)
[2021-06-19] MEDS ORDERED: FUROSEMIDE 40MG VIAL IV ONE (12:30)
[2021-06-19 13:24] LABS: INR 1.19 (0.85-1.15); PROTHROMBIN TIME 12.8 SEC (9.6-11.6)
[2021-06-19] MEDS ORDERED: IOHEXOL 350 MG/ML 100ML INFUS..BTL IV ONE (13:59)
[2021-06-19] MEDS ORDERED: FUROSEMIDE 40MG VIAL IV SCH (14:30)
[2021-06-19 16:09] VITALS: BP 138/79
[2021-06-19] MEDS ORDERED: ESOM40CA54 PO (18:08)
[2021-06-19] MEDS ORDERED: URSO500T10 PO (18:08)
[2021-06-19] MEDS ORDERED: SACU1TAB7 PO (18:08)
[2021-06-19] MEDS ORDERED: APIX5TAB PO (18:08)
[2021-06-19] MEDS ORDERED: ALLO300T2 PO (18:08)
[2021-06-19] MEDS ORDERED: METO-391 PO (18:08)
[2021-06-19] MEDS ORDERED: DIGO125T71 PO (18:08)
[2021-06-19] MEDS ORDERED: POTA-79 PO (18:08)
[2021-06-19] MEDS ORDERED: PRAV40TA3 PO (18:08)
[2021-06-19] MEDS ORDERED: FURO40TA5 PO (18:08)
[2021-06-19] MEDS: FUROSEMIDE 40 MG TABLET PO SCH (20:25)
[2021-06-19 20:36] VITALS: BP 149/75
[2021-06-19] MEDS: ATORVASTATIN 10 MG TABLET PO SCH (20:39)
[2021-06-19] MEDS: SACUBITRIL/VALSARTAN 1 EACH TABLET PO SCH (20:39)
[2021-06-19] MEDS: FUROSEMIDE 40MG VIAL IVP SCH (20:40)
[2021-06-19] MEDS: URSODIOL 500 MG PO SCH (20:49)
[2021-06-19] MEDS ORDERED: ACETAMINOPHEN 325 MG TAB PO PRN (22:30)
[2021-06-20 00:03] VITALS: BP 143/71
[2021-06-20 03:50] VITALS: BP 110/80
[2021-06-20] MEDS: FUROSEMIDE 40MG VIAL IVP SCH ×2 (04:20→09:27)
[2021-06-20 05:27] LABS: ALBUMIN 2.9 g/dL (3.5-5.0); BILIRUBIN,TOTAL 1.4 mg/dL (0.2-1.0); CREATININE 0.8 mg/dL (0.5-1.5); POTASSIUM 3.4 mmol/L (3.5-5.1); TOTAL PROTEIN, SERUM 6.4 g/dL (6.0-8.3)
[2021-06-20 05:35] LABS: BASOPHILS % (AUTO) 1.1 % (0.0-5.0); EOSINOPHILS % (AUTO) 1.1 % (0.0-8.0); HEMATOCRIT 36.9 % (36-48); LYMPHOCYTES % (AUTO) 5.8 % (21.0-51.0); MEAN CORPUSCULAR HGB CONC 30.6 g/dL (32.0-36.0); MEAN CORPUSCULAR VOLUME 88.3 fL (79-99); NEUTROPHILS % (AUTO) 85.6 % (40.0-77.0); PLATELET COUNT (AUTO) 160 K/uL (130-400); RED BLOOD CELL COUNT(AUTO) 4.18 MIL/uL (4.00-5.50); RED CELL DISTRIBUTION WIDTH 17.2 % (11.0-15.5); WHITE BLOOD COUNT (AUTO) 11.4 K/uL (4.8-10.8)
[2021-06-20 08:00] VITALS: BP 137/76
[2021-06-20] MEDS: URSODIOL 500 MG PO SCH (09:00)
[2021-06-20] MEDS ORDERED: APIXABAN 5 MG TABLET PO SCH (09:00)
[2021-06-20] MEDS: FUROSEMIDE 40 MG TABLET PO SCH (09:00)
[2021-06-20] MEDS ORDERED: DIGOXIN 125 MCG TABLET PO SCH (09:00)
[2021-06-20] MEDS ORDERED: PANTOPRAZOLE 40 MG TAB DR PO SCH (09:00)
[2021-06-20] MEDS ORDERED: ALLOPURINOL 300 MG TABLET PO SCH (09:00)
[2021-06-20] MEDS ORDERED: KCL 20 MEQ ERTAB PO SCH (09:00)
[2021-06-20] MEDS ORDERED: METOPROLOL SUCCINATE 50 MG TAB.SR.24H PO SCH (09:00)
[2021-06-20] MEDS: ATORVASTATIN 10 MG TABLET PO SCH (09:27)
[2021-06-20] MEDS: SACUBITRIL/VALSARTAN 1 EACH TABLET PO SCH (09:28)
[2021-06-20 12:00] VITALS: BP 130/59
== END 2021-06-20 14:15 | disposition home or self-care (01) ==
LOC: EDH 11:15 → EDHIP 14:11 → INTOOBSV 14:11 → 3AH 16:53
PROVIDERS: ADMIT Internal Medicine; ATTEND Internal Medicine
DX: J96.21 Acute and chronic respiratory failure with hypoxia (principal); I11.0 Hypertensive heart disease with heart failure; I50.9 Heart failure, unspecified; E11.9 Type 2 diabetes mellitus without complications; E66.9 Obesity, unspecified; E78.00 Pure hypercholesterolemia, unspecified; I49.9 Cardiac arrhythmia, unspecified; R51.9 Headache, unspecified; Z87.891 Personal history of nicotine dependence; Z79.4 Long term (current) use of insulin; Z98.51 Tubal ligation status; Z98.891 History of uterine scar from previous surgery; Z68.29 Body mass index [BMI] 29.0-29.9, adult
CPT/HCPCS: 36415 ×2; 70450; 71045; 80053 ×2; 82550; 82948 ×3; 83880; 84484; 85025 ×2; 85378; 85610; 93005; 96374; 96375; 96376 ×2; 99285; G0378 ×24; J1940 ×4; J2405; Q9967

== ENCOUNTER 2021-07-07 08:46 | Emergency (ER) | payer OTHER, MEDICARE ==
[~2021-07-07] VITALS: Ht 154.9 cm; Wt 84.8 kg
[~2021-07-07 08:46] MED LIST changes: -ACET-2247 PO; -CEPH500B PO; +DIGO125T71 PO; -DULA3PEN SQ; -FLUT1BLS3 IH; -INSU200I4 SQ; -[UNRECOGNIZED DRUG - CODE] TP
[2021-07-07 09:33] LABS: BASOPHILS % (AUTO) 0.6 % (0.0-5.0); EOSINOPHILS % (AUTO) 0.8 % (0.0-8.0); HEMATOCRIT 36.5 % (36-48); LYMPHOCYTES % (AUTO) 8.7 % (21.0-51.0); MEAN CORPUSCULAR HEMOGLOBIN 26.3 pg (27.0-33.0); MEAN CORPUSCULAR HGB CONC 30.7 g/dL (32.0-36.0); MEAN CORPUSCULAR VOLUME 85.7 fL (79-99); MONOCYTES % (AUTO) 6.1 % (3.0-13.0); NEUTROPHILS % (AUTO) 83.4 % (40.0-77.0); NUCLEATED RED BLOOD CELLS 0.2 % (0.0-0.19); PLATELET COUNT (AUTO) 194 K/uL (130-400); RED BLOOD CELL COUNT(AUTO) 4.26 MIL/uL (4.00-5.50); RED CELL DISTRIBUTION WIDTH 16.9 % (11.0-15.5); WHITE BLOOD COUNT (AUTO) 11.1 K/uL (4.8-10.8)
[2021-07-07 09:47] LABS: POTASSIUM 3.6 mmol/L (3.5-5.1)
[2021-07-07 09:56] LABS: ALBUMIN 3.4 g/dL (3.5-5.0); BILIRUBIN,TOTAL 1.2 mg/dL (0.2-1.0); TOTAL PROTEIN, SERUM 6.7 g/dL (6.0-8.3)
[2021-07-07 10:12] LABS: B-TYPE NATRIURETIC PEPTIDE 1320 pg/mL (0-100)
[2021-07-07] MEDS ORDERED: FUROSEMIDE 40MG VIAL IV SCH (10:30)
[2021-07-07] MEDS ORDERED: ACETAMINOPHEN 500 MG TABLET PO SCH (11:30)
[2021-07-07 11:36] VITALS: BP 144/86
== END 2021-07-07 12:00 | disposition home or self-care (01) ==
LOC: EDH 08:46
DX: I11.0 Hypertensive heart disease with heart failure (principal); I50.9 Heart failure, unspecified; Z20.822 Contact with and (suspected) exposure to COVID-19; J44.9 Chronic obstructive pulmonary disease, unspecified; E11.9 Type 2 diabetes mellitus without complications; E78.00 Pure hypercholesterolemia, unspecified; I48.91 Unspecified atrial fibrillation; Z79.01 Long term (current) use of anticoagulants; Z79.899 Other long term (current) drug therapy; Z90.49 Acquired absence of other specified parts of digestive tract
CPT/HCPCS: 36415; 71045; 80053; 83880; 84484; 85025; 87635; 87804 ×2; 93005; 96374; 99285; C9803; J1940

== ENCOUNTER 2021-11-10 08:38 | Emergency (ER) | payer OTHER, MEDICARE ==
[~2021-11-10] VITALS: Ht 157.5 cm; Wt 83.9 kg
[2021-11-10 09:28] LABS: BASOPHILS % (AUTO) 1.4 % (0.0-5.0); EOSINOPHILS % (AUTO) 1.5 % (0.0-8.0); HEMATOCRIT 36.1 % (36-48); LYMPHOCYTES % (AUTO) 10.9 % (21.0-51.0); MEAN CORPUSCULAR HEMOGLOBIN 25.7 pg (27.0-33.0); MEAN CORPUSCULAR HGB CONC 30.5 g/dL (32.0-36.0); MEAN CORPUSCULAR VOLUME 84.3 fL (79-99); MONOCYTES % (AUTO) 4.8 % (3.0-13.0); PLATELET COUNT (AUTO) 200 K/uL (130-400); RED BLOOD CELL COUNT(AUTO) 4.28 MIL/uL (4.00-5.50); RED CELL DISTRIBUTION WIDTH 19.9 % (11.0-15.5); WHITE BLOOD COUNT (AUTO) 9.1 K/uL (4.8-10.8)
[2021-11-10 09:50] LABS: CREATININE 1.1 mg/dL (0.5-1.5); MAGNESIUM 1.9 mg/dL (1.80-2.40); POTASSIUM 3.8 mmol/L (3.5-5.1); TOTAL PROTEIN, SERUM 6.7 g/dL (6.0-8.3)
[2021-11-10] MEDS ORDERED: FUROSEMIDE 40MG VIAL IV ONE (10:00)
[2021-11-10] MEDS ORDERED: SOLU-MEDROL 125MG VIAL IVP ONE (10:00)
[2021-11-10] MEDS ORDERED: BUDESONIDE 0.5 MG/2 ML INH IH SCH ×2 (10:00→21:00)
[2021-11-10] MEDS ORDERED: IPRATROPIUM/ALBUTEROL SULFATE 3 ML SOLUTION IH ONE (10:00)
[2021-11-10 10:18] LABS: B-TYPE NATRIURETIC PEPTIDE 700 pg/mL (0-100)
[2021-11-10] MEDS ORDERED: PRED50TA2 PO (11:18)
[2021-11-10 11:37] LABS: APPEARANCE,URINE CLEAR (CLEAR); BILIRUBIN,URINE NEGATIVE (NEGATIVE); COLOR,URINE YELLOW (YELLOW); GLUCOSE, URINE (UA) NEGATIVE (NEGATIVE); KETONES,URINE NEGATIVE (NEGATIVE); LEUKOCYTE ESTERASE ,URINE NEGATIVE (NEGATIVE); NITRATE,URINE NEGATIVE (NEGATIVE); OCCULT BLOOD,URINE NEGATIVE (NEGATIVE); PROTEIN,URINE 30 mg/dL (NEGATIVE); UROBILINOGEN,URINE 0.2 mg/dL (0.2-1.0)
[2021-11-10 11:43] LABS: BACTERIA,URINE Rare /HPF (None Seen); RBC,URINE 0-1 /HPF (0-1); SQUAMOUS EPITHELIAL CELL,UR Few /HPF (0-2)
[2021-11-10 11:58] VITALS: BP 142/100
== END 2021-11-10 11:57 | disposition home or self-care (01) ==
LOC: EDH 08:38
DX: I11.0 Hypertensive heart disease with heart failure (principal); I50.9 Heart failure, unspecified; J44.9 Chronic obstructive pulmonary disease, unspecified; Z20.822 Contact with and (suspected) exposure to COVID-19; E11.9 Type 2 diabetes mellitus without complications; E78.00 Pure hypercholesterolemia, unspecified; I48.91 Unspecified atrial fibrillation; Z79.01 Long term (current) use of anticoagulants; Z79.51 Long term (current) use of inhaled steroids; Z79.52 Long term (current) use of systemic steroids; Z79.899 Other long term (current) drug therapy; Z90.49 Acquired absence of other specified parts of digestive tract
CPT/HCPCS: 99285; 96374; 71045; 87635; 96375; 83735; 84484; 80053; 83880; 85025; 85378; 81001; 36415; 93005; 94640 ×2; C9803; J2930; J1940

== ENCOUNTER 2022-04-28 11:23 | Inpatient (IN) | payer OTHER, MEDICARE ==
[~2022-04-28] VITALS: Ht 152.4 cm; Wt 79.2 kg
[~2022-04-28 11:23] MED LIST changes: -DIGO125T71 PO; +DULA3PEN SQ; +IPRA0.2S54 IH; +IPRA3AMP24 NEB; +POTA-202 PO; -POTA-79 PO; -PRAV40TA3 PO; +PRED50TA2 PO; +ROSU20TA31 PO; +SACU1TAB4 PO; -SACU1TAB7 PO
[2022-04-28] MEDS ORDERED: ACET-2123 PO (12:01)
[2022-04-28] MEDS ORDERED: ZOLP5TAB8 PO (12:01)
[2022-04-28] MEDS ORDERED: MORPHINE PO (12:01)
[2022-04-28] MEDS ORDERED: PROM25TA7 PO (12:01)
[2022-04-28] MEDS ORDERED: BUME2TAB5 PO (12:01)
[2022-04-28] MEDS ORDERED: LORA-192 PO (12:01)
[2022-04-28 13:28] LABS: BASOPHILS % (AUTO) 1.6 % (0.0-5.0); HEMATOCRIT 38.6 % (36-48); LYMPHOCYTES % (AUTO) 14.4 % (21.0-51.0); MEAN CORPUSCULAR HEMOGLOBIN 27.3 pg (27.0-33.0); MEAN CORPUSCULAR HGB CONC 31.3 g/dL (32.0-36.0); MEAN CORPUSCULAR VOLUME 87.1 fL (79-99); MONOCYTES % (AUTO) 11.2 % (3.0-13.0); NEUTROPHILS % (AUTO) 69.6 % (40.0-77.0); PLATELET COUNT (AUTO) 141 K/uL (130-400); RED BLOOD CELL COUNT(AUTO) 4.43 MIL/uL (4.00-5.50); RED CELL DISTRIBUTION WIDTH 18.5 % (11.0-15.5); WHITE BLOOD COUNT (AUTO) 6.4 K/uL (4.8-10.8)
[2022-04-28 13:42] LABS: ALBUMIN 3.2 g/dL (3.5-5.0); CREATININE 1.6 mg/dL (0.5-1.5); POTASSIUM 3.6 mmol/L (3.5-5.1); TOTAL PROTEIN, SERUM 6.6 g/dL (6.0-8.3)
[2022-04-28 16:28] LABS: APPEARANCE,URINE CLOUDY (CLEAR); BILIRUBIN,URINE NEGATIVE (NEGATIVE); COLOR,URINE YELLOW (YELLOW); GLUCOSE, URINE (UA) NEGATIVE (NEGATIVE); KETONES,URINE 5 mg/dL (NEGATIVE); LEUKOCYTE ESTERASE ,URINE 75 Leu/uL (NEGATIVE); NITRATE,URINE NEGATIVE (NEGATIVE); OCCULT BLOOD,URINE NEGATIVE (NEGATIVE); PH,URINE 5.5 (5.0-8.0); PROTEIN,URINE 30 mg/dL (NEGATIVE); UROBILINOGEN,URINE 0.2 mg/dL (0.2-1.0)
[2022-04-28 16:46] LABS: BACTERIA,URINE RARE /HPF (None Seen); MUCUS,URINE RARE LPF (None Seen); RBC,URINE 0-1 /HPF (0-1); SQUAMOUS EPITHELIAL CELL,UR RARE /HPF (0-2)
[2022-04-28] MEDS: FUROSEMIDE 40MG VIAL IVP SCH (18:54)
[2022-04-28] MEDS: CEFTRIAXONE 1G VIAL IVPB SCH (18:54)
[2022-04-28] MEDS: FUROSEMIDE 40MG VIAL IV SCH (18:54)
[2022-04-28] MEDS ORDERED: CEFTRIAXONE 1G VIAL IVP SCH (19:00)
[2022-04-28 23:15] VITALS: BP 130/80
[2022-04-28] MEDS: IPRATROPIUM 0.5 MG/2.5 ML INH IH SCH (23:25)
[2022-04-28] MEDS: ALBUTEROL 0.083% 2.5 MG/3 ML INH IH SCH (23:25)
[2022-04-28] MEDS: IPRATROPIUM/ALBUTEROL SULFATE 3 ML SOLUTION IH SCH (23:25)
[2022-04-29] MEDS: FUROSEMIDE 40MG VIAL IVP SCH ×3 (03:00→19:00)
[2022-04-29] MEDS: FUROSEMIDE 40MG VIAL IV SCH ×3 (03:05→19:00)
[2022-04-29 04:00] VITALS: BP 135/66
[2022-04-29] MEDS ORDERED: DEXTROSE 50%-WATER 50 ML DISP.SYRIN IV ONE (05:40)
[2022-04-29] MEDS: IPRATROPIUM/ALBUTEROL SULFATE 3 ML SOLUTION IH SCH ×4 (06:00→23:40)
[2022-04-29] MEDS: IPRATROPIUM 0.5 MG/2.5 ML INH IH SCH ×4 (06:28→23:37)
[2022-04-29] MEDS: ALBUTEROL 0.083% 2.5 MG/3 ML INH IH SCH ×4 (06:28→23:37)
[2022-04-29 08:00] VITALS: BP 117/63
[2022-04-29 09:39] LABS: BASOPHILS % (AUTO) 0.8 % (0.0-5.0); EOSINOPHILS % (AUTO) 2.7 % (0.0-8.0); LYMPHOCYTES % (AUTO) 8.7 % (21.0-51.0); MEAN CORPUSCULAR HEMOGLOBIN 27.3 pg (27.0-33.0); MEAN CORPUSCULAR HGB CONC 30.8 g/dL (32.0-36.0); MEAN CORPUSCULAR VOLUME 88.5 fL (79-99); MONOCYTES % (AUTO) 8.4 % (3.0-13.0); NEUTROPHILS % (AUTO) 79.1 % (40.0-77.0); PLATELET COUNT (AUTO) 112 K/uL (130-400); RED BLOOD CELL COUNT(AUTO) 4.07 MIL/uL (4.00-5.50); RED CELL DISTRIBUTION WIDTH 18.3 % (11.0-15.5)
[2022-04-29 09:55] LABS: ALBUMIN 2.8 g/dL (3.5-5.0); CREATININE 1.3 mg/dL (0.5-1.5); TOTAL PROTEIN, SERUM 6.1 g/dL (6.0-8.3)
[2022-04-29 10:21] LABS: POTASSIUM 2.9 mmol/L (3.5-5.1)
[2022-04-29] MEDS ORDERED: ZOLPIDEM TARTRATE 5 MG TAB PO PRN (11:30)
[2022-04-29] MEDS ORDERED: MORPHINE 20MG/ML SOLN 0.25ML PO PRN (11:30)
[2022-04-29] MEDS ORDERED: ACETAMINOPHEN 500 MG TABLET PO PRN (11:30)
[2022-04-29] MEDS ORDERED: PROMETHAZINE HCL 25 MG TABLET PO PRN (11:30)
[2022-04-29 12:00] VITALS: BP 119/58
[2022-04-29] MEDS ORDERED: KCL 20 MEQ ERTAB PO PRN (12:00)
[2022-04-29] MEDS ORDERED: POTASSIUM CHLORIDE 10% ELIXIR 20 MEQ/15 ML UDCUP PO PRN (12:00)
[2022-04-29] MEDS ORDERED: LIDOCAINE HCL-MPF 1% 2ML VIAL IV PRN (12:00)
[2022-04-29] MEDS ORDERED: POTASSIUM CHLORIDE 20MEQ/100ML 100 ML IV PRN (12:00)
[2022-04-29 16:00] VITALS: BP 119/65
[2022-04-29] MEDS: CEFTRIAXONE 1G VIAL IVPB SCH (19:00)
[2022-04-29 20:15] VITALS: BP 155/90
[2022-04-29] MEDS: LORAZEPAM 1 MG TABLET PO PRN (21:59)
[2022-04-29 23:55] VITALS: BP 170/83
[2022-04-30] MEDS: FUROSEMIDE 40MG VIAL IVP SCH (03:00)
[2022-04-30] MEDS: FUROSEMIDE 40MG VIAL IV SCH ×3 (03:00→18:53)
[2022-04-30 04:36] VITALS: BP 143/73
[2022-04-30] MEDS: IPRATROPIUM/ALBUTEROL SULFATE 3 ML SOLUTION IH SCH (06:00)
[2022-04-30] MEDS: ALBUTEROL 0.083% 2.5 MG/3 ML INH IH SCH ×4 (07:03→23:35)
[2022-04-30] MEDS: IPRATROPIUM 0.5 MG/2.5 ML INH IH SCH ×4 (07:03→23:35)
[2022-04-30 08:00] VITALS: BP 131/74
[2022-04-30] MEDS: LORAZEPAM 1 MG TABLET PO PRN (10:22)
[2022-04-30] MEDS ORDERED: MORPHINE 2 MG SYG IVP SCH (11:31)
[2022-04-30 16:00] VITALS: BP 148/119
[2022-04-30] MEDS: MORPHINE 2 MG SYG IVP SCH ×3 (16:24→23:51)
[2022-04-30] MEDS: CEFTRIAXONE 1G VIAL IVPB SCH (18:53)
[2022-04-30 20:00] VITALS: BP 109/58
[2022-05-01] MEDS: FUROSEMIDE 40MG VIAL IV SCH ×2 (02:18→11:00)
[2022-05-01] MEDS: MORPHINE 2 MG SYG IVP SCH ×4 (04:12→18:36)
[2022-05-01] MEDS: ALBUTEROL 0.083% 2.5 MG/3 ML INH IH SCH ×3 (06:58→18:25)
[2022-05-01] MEDS: IPRATROPIUM 0.5 MG/2.5 ML INH IH SCH ×3 (06:58→18:25)
[2022-05-01 08:00] VITALS: BP 121/89
[2022-05-01 11:52] VITALS: BP 129/72
[2022-05-01 16:00] VITALS: BP 119/67
== END 2022-05-01 20:40 | disposition hospice, home (50) | DRG 193 ==
LOC: EDH 11:23 → EDHIP 17:45 → OBSVTOIN 17:45 → INTOOBSV 17:45 → 3DH 23:15
PROVIDERS: ADMIT Internal Medicine; ATTEND Internal Medicine
DX: J18.9 Pneumonia, unspecified organism (principal); J96.20 Acute and chronic respiratory failure, unspecified whether with hypoxia or hypercapnia; J44.0 Chronic obstructive pulmonary disease with (acute) lower respiratory infection; Z20.822 Contact with and (suspected) exposure to COVID-19; I50.9 Heart failure, unspecified; I11.0 Hypertensive heart disease with heart failure; E11.9 Type 2 diabetes mellitus without complications; I48.91 Unspecified atrial fibrillation; K74.60 Unspecified cirrhosis of liver; E78.00 Pure hypercholesterolemia, unspecified; F41.9 Anxiety disorder, unspecified; I25.10 Atherosclerotic heart disease of native coronary artery without angina pectoris; Z82.49 Family history of ischemic heart disease and other diseases of the circulatory system; Z91.14 Patient's other noncompliance with medication regimen
CPT/HCPCS: 36415; 71045; 80053; 81001; 82948; 83880; 84484; 85025; 87077; 87088; 87186; 87635; 93005; 94640; 94664; G0378; J0696; J1940; J7070